=== PATIENT | female | born 1940 | race Caucasian/White ===

== ENCOUNTER 2018-05-15 21:09 | Inpatient (IN) ==
[2018-05-15] MEDS ORDERED: Sod Chloride 0.9% Inj 1,000 ML IV.SIG ONE (21:25)
[2018-05-15 21:51] LABS: Baso # (Auto) 0.1 th/mm3 (0.0-0.2); Eos # (Auto) 0.3 th/mm3 (0.0-0.4); Eos % (Auto) 3.5 % (0.0-4.0); Hematocrit 36.9 % (35.0-46.0); Hemoglobin 12.7 gm/dL (11.6-15.3); Lymph # (Auto) 0.9 th/mm3 (1.0-4.8); Lymph % (Auto) 10.2 % (9.0-44.0); Mean Corpuscular HGB Conc 34.4 % (32.0-36.0); Mean Platelet Volume 7.8 fL (7.0-11.0); Neut # (Auto) 6.8 th/mm3 (1.8-7.7); Neut % (Auto) 74.3 % (16.0-70.0); Platelet Count 268 th/mm3 (150-450); Red Blood Count 3.84 mil/mm3 (4.00-5.30); Red Cell Distribution Width 15.5 % (11.6-17.2); White Blood Count 9.1 th/mm3 (4.0-11.0)
[2018-05-15] MEDS ORDERED: Sod Chloride 0.9% Inj 1,000 ML IV.SIG SCH (22:00)
[2018-05-15 22:12] LABS: Anion Gap 11 meq/L (5-15); Aspartate Aminotransferase 30 U/L (15-37); Blood Urea Nitrogen 14 mg/dL (7-18); Calcium 8.5 mg/dL (8.5-10.1); Carbon Dioxide 25.8 meq/L (21.0-32.0); Chloride 103 meq/L (98-107); Glomerular Filtration Rate 30 mL/min (>89); Glucose,Random 145 mg/dL (74-106); Lipase 163 U/L (73-393); Magnesium 1.5 mg/dL (1.5-2.5); Potassium 3.4 meq/L (3.5-5.1); Sodium 140 meq/L (136-145)
[2018-05-15 22:16] LABS: Alanine Aminotransferase 33 U/L (10-53); Alkaline Phosphatase 76 U/L (45-117); Total Protein 7.1 g/dL (6.4-8.2)
[2018-05-15] MEDS: Morphine Inj 4 MG/ML Vial IV.PUSH ONE ×2 (22:32→23:00)
--- NOTE | 2018-05-15 22:47 | XR ---
EXAM DATE: 05/15/2018 10:40 PM EST AGE/SEX: 77 years / Female INDICATIONS: Short of breath. CLINICAL DATA: This is the patient's initial encounter. Patient reports that signs and symptoms have been present for 1 day and indicates a pain score of 0/10. MEDICAL/SURGICAL HISTORY: Hypertension. Chronic obstructive pulmonary disease. Diabetes. . Cho lecystectomy. Coronary artery stent. Tonsillectomy. Hernia repair. COMPARISON: [facility] – [place], [place]ST 1V SINGLE AP, 05/10/2018. . FINDINGS: A single AP view of the chest demonstrates small bilateral pleural effusions and bibasilar consolidat ions. These are new from the prior exam. Heart is mildly enlarged. Interstitial prominence noted thro ughout the lungs. A degenerative spine. CONCLUSION: Radiographic pattern consistent with pulmonary edema. Electronically signed by: Abimael Diallo MD Board Certified Radiologist 05/15/2018 10:46 PM EST
--- NOTE | 2018-05-15 22:59 | CT ---
EXAM DATE: 05/15/2018 10:51 PM EST AGE/SEX: 77 years / Female INDICATIONS: Left upper quadrant pain. CLINICAL DATA: This is the patient's initial encounter. Patient reports that signs and symptoms have been present for 1 day and indicates a pain score of 5/10. MEDICAL/SURGICAL HISTORY: Hiatal hernia. Diabetes. Chronic obstructive pulmonary disease. Hy pertension. Umbilical hernia. Cholecystectomy. RADIATION DOSE: 12.16 CTDI (mGy) COMPARISON: [facility] – [place], CT ABDOMEN & PELVIS W/O CONTRAST, 09/28/2015. . TECHNIQUE: Multiple contiguous axial images were obtained through the abdomen. Images were obtained using multiple row detector helical technique. Using automated exposure control and adjustment of the mA and/or kV according to patient size, radiation dose was kept as low as reasonably achievable to o btain optimal diagnostic quality images. DICOM format image data is available electronically for rev iew and comparison. FINDINGS: Lower Lungs: Small bilateral pleural effusions with passive atelectasis. Significant mitral valve jen cifications.. Liver: The liver has a homogeneous density without space-occupying lesion. There is no dilation of th e biliary tree. Gallbladder is surgically absent. Spleen: Homogeneous density without enlargement. Pancreas: Unremarkable without mass or calcification. Kidneys: Normal in size and shape. No evidence of mass or hydronephrosis. Adrenal Glands: Unremarkable. Aorta: Calcified plaque without aneurysmal dilation. Bowel/Mesentery: The bowel loops are grossly unremarkable. The cecum and sigmoid colon have a normal configuration. Abdominal Wall: Subcutaneous air is seen involving the anterior abdominal wall above the level of th e umbilicus. Small volume subcutaneous air is also seen within the left lower quadrant anterior abdom inal wall. Prior ventral hernia repair utilizing mesh. No recurrent hernia. No fluid collection.. Retroperitoneum: No evidence of adenopathy in the retrocrural, para-aortic, or deep pelvic regions. Bladder: Contours are smooth. Reproductive Organs: No abnormal masses or calcifications seen. Inguinal: The inguinal region is unremarkable without evidence of adenopathy. Bony Structures: A degenerative lumbar spine.. CONCLUSION: 1. No acute abnormality to explain the patient's left upper quadrant pain. 2. Subcutaneous air involving the anterior abdominal wall without inflammation or fluid collection. This may relate to subcutaneous medication administration. 3. Prior cholecystectomy. 4. Small bilateral pleural effusions with passive atelectasis. Electronically signed by: Abimael Diallo MD Board Certified Radiologist 05/15/2018 10:58 PM EST
--- NOTE | 2018-05-15 22:59 | ED ---
HPI General Chief complaint: Abdominal Pain Stated complaint: wound recheck Time Seen by Provider: 05/15/18 21:16 Source: patient and family Limitations: no limitations History of Present Illness HPI narrative: Patient is a 77-year-old female with history of COPD but not on oxygen in addition to CKD who presents with complaint of upper left-sided abdominal/lower left chest pain and dyspnea that began today. She has taken a tramadol and a muscle relaxer without any relief. She had a hiatal hernia surgery last week with a diaphragmatic repair. She has not had any fevers nor chills. She has had some diarrhea. No cough nor congestion. No leg swelling but she did have the surgery last week and has been relatively immobile. Onset (ago): hour(s) Severity: moderate Quality: aching Pain Consistency: constant Relieving factors: none Exacerbating factors: none Associated symptoms: Reports chest pain and shortness of breath Treatments prior to arrival: Reports other Related Data Home Medications Medication Instructions Recorded Confirmed Lacto.acidophilus-Bif.animalis 2 tab DAILY 05/10/18 05/15/18 [Daily Probiotic] alpha lipoic acid 600 mg PO DAILY 05/10/18 05/15/18 atorvastatin 10 mg PO DAILY 05/10/18 05/15/18 chromium aa msb-nvcxolmma-rozn 200 mg PO DAILY 05/10/18 05/15/18 cyanocobalamin (vitamin B-12) 1,000 mcg PO DAILY 05/10/18 05/15/18 [Vitamin B-12] ferrous sulfate 325 mg PO DAILY 05/10/18 05/15/18 gabapentin 300 mg PO TID 05/10/18 05/15/18 glipizide 5 mg PO DAILY 05/10/18 05/15/18 melatonin 3 mg PO HS PRN 05/10/18 05/15/18 metformin 500 mg PO BID 05/10/18 05/15/18 pantoprazole 40 mg PO DAILY 05/10/18 05/15/18 paroxetine HCl 30 mg PO DAILY 05/10/18 05/15/18 cyclobenzaprine 10 mg PO TID PRN 05/15/18 05/15/18 tramadol 50 mg PO Q6H PRN 05/15/18 05/15/18 Allergies Allergy/AdvReac Type Severity Reaction Status Date / Time adenosine Allergy Severe Tachycardia Verified 05/15/18 21:15 amoxicillin Allergy Severe Itching Verified 05/15/18 21:15 cephalexin Allergy Severe Swelling Verified 05/15/18 21:15 latex Allergy Severe Rash Verified 05/15/18 21:15 oxycodone Allergy Severe Hallucinati Verified 05/15/18 21:15 ons procaine Allergy Severe Shakiness Verified 05/15/18 21:15 prednisone Allergy Hallucinati Verified 05/15/18 21:15 ons CUREL BANDAIDS Allergy Unknown Hives Uncoded 05/15/18 21:15 Review of Systems ROS: all other systems reviewed are negative [facility] Medical History Medical History COPD (chronic obstructive pulmonary disease) (Acute) Chronic GERD (Acute) Diabetes (Acute) Hiatal hernia (Acute) Hypertension (Acute) Peptic ulcer (Acute) Surgical History Surgical History History of repair of hiatal hernia (Acute) H/O angioplasty (Acute) H/O umbilical hernia repair (Acute) History of tonsillectomy (Acute) Hx of cholecystectomy (Acute) Social History Social History Substance History: No History of Abuse Second Hand Smoke Exposure: No Smoking Status: Former smoker Tobacco Type: Cigarettes How Often Do You Have a Drink Containing Alcohol: Never Recent Travel in [facility] within the Last 8 Weeks: No Recent Out of Country Travel within the Last 8 Weeks: No Immunization History Tetanus Immunization: Unsure Exam Narrative Exam Narrative: GENERAL: Well-appearing, elderly female SKIN: Focused skin assessment warm/dry. HEAD: Atraumatic. Normocephalic. EYES: Pupils equal and round. No scleral icterus. No injection or drainage. ENT: No nasal bleeding or discharge. Mucous membranes pink and moist. NECK: Trachea midline. No JVD. CARDIOVASCULAR: Regular rate and rhythm. No murmur appreciated. Intact and equal peripheral pulses. RESPIRATORY: No accessory muscle use. Clear to auscultation. Breath sounds equal bilaterally. GASTROINTESTINAL: Abdomen soft, some tenderness in the left upper quadrant, nondistended. Hepatic and splenic margins not palpable. MUSCULOSKELETAL: No obvious deformities. No clubbing. No cyanosis. No edema. NEUROLOGICAL: Awake and alert. No obvious cranial nerve deficits. Motor grossly within normal limits. Normal speech. PSYCHIATRIC: Appropriate mood and affect; insight and judgment normal. Course Initial Documented Vital Signs Temperature 97.5 F L 05/15/18 21:14 Pulse Rate 102 H 05/15/18 21:14 Respiratory Rate 24 05/15/18 21:14 Blood Pressure 82/48 L 05/15/18 21:14 Pulse Oximetry 94 L 05/15/18 21:14 Last Documented Vital Signs Temperature 98.6 F 05/17/18 16:16 Pulse Rate 86 05/17/18 18:22 Respiratory Rate 18 05/17/18 11:51 Blood Pressure 152/83 H 05/17/18 18:22 Pulse Oximetry 96 05/17/18 18:22 Critical Care Time Critical Care Time: Yes Total Critical Care Time: 35 Attestation: Aggregate critical care time was 35 minutes. Time to perform other separately billable procedures was not included in the critical care time. My time did not include minutes spent treating any other patients simultaneously or on activities that did not directly contribute to the patient's treatment. The services I provided to this patient were to treat and/or prevent clinically significant deterioration that could result in: NSTEMI, disability I provided critical care services requiring my management, as noted below: Chart data review, documentation time, medication orders and management, vital sign assessments/reviewing monitor data, ordering and reviewing lab tests, ordering and interpreting/reviewing x-rays and diagnostic studies, care of the patient and discussion of the patient with the admitting physicians. Sign Out Sign Out Data: Patient Sign Out occurred on 05/15/18 at 23:18. Patient's care was discussed, and care was transferred from Keyana Rincon MD to Brant Mejia MD. Sign Out Comment: Low chest/upper abd pain. New O2 requirement. CT abd/pelvis and VQ scan pending. Last updated by Keyana Rincon MD at 05/15/18 23:13 Medical Decision Making MDM Narrative Medical decision making narrative: Patient is a 77-year-old female who presents with lower left chest/upper abdominal pain that began today. She did have a hiatal hernia surgery last week. On arrival her blood pressure was in the 80s and she responded to fluid bolus. She does also have a new oxygen requirement which responded well to 2 L nasal cannula. Labs are relatively unremarkable and show CKD. Given her creatinine she cannot have contrasted CTs and thus a VQ scan and a CT of the abdomen pelvis have been ordered. I did discuss this with her surgeon, Dr. Alves who agreed to see the patient tomorrow. Please refer to Dr Rincon's note. WBC 9,100 Hb 12.7 Plt 268 Cr 1.65 Tn 0.03 Lipase 163 EKG TWI in V2-V5 appear new compared to [address] abd/pelvis: Small bilateral pleural effusions; post-operative changes; atelectasis Pt ambulated in pod. Upon return to room RR 30BPM. O2 sat approx 95% on RA upon return. HR 70s. Pt reports severe pain in LUQ quadrant upon return to bed. Dilaudid ordered, 1mg IV, along with Zofran. BP 100/51 at 123AM. There is concern for CAD in setting of EKG change with left sided chest pain worse with exertion in post-operative setting with bilateral pleural effusions, atelectasis and dyspnea at rest requiring O2 for sustained O2 sat in the 90s coupled with relative hypotension 90s/50s after 1L NS. 500cc NS bolus ordered as of 126AM. Call to [facility] at 120AM. d/w Dr rGace at approx 130AM. Medical Screen Exam Complete: Yes Emergency Medical Condition: Yes Differential Diagnosis Differential Diagnosis: Differential diagnosis includes but is not limited to acute coronary syndrome, pulmonary embolism, intra-abdominal infection. Medical Records Medical records reviewed: Yes I reviewed the patient's medical records. Lab Data Result diagrams: 05/17/18 08:39 05/17/18 08:39 Lab Results 05/15/18 05/15/18 05/15/18 Range/Units 21:40 21:40 21:40 WBC 9.1 (4.0-11.0) th/mm3 RBC 3.84 L (4.00-5.30) mil/mm3 Hgb 12.7 (11.6-15.3) gm/dL Hct 36.9 (35.0-46.0) % MCV 96.0 (80.0-100.0) fL MCH 33.0 (27.0-34.0) pg MCHC 34.4 (32.0-36.0) % RDW 15.5 (11.6-17.2) % Plt Count 268 (150-450) th/mm3 MPV 7.8 (7.0-11.0) fL Neut % (Auto) 74.3 H (16.0-70.0) % Lymph % (Auto) 10.2 (9.0-44.0) % [place] % (Auto) 11.0 H (0.0-8.0) % Eos % (Auto) 3.5 (0.0-4.0) % Baso % (Auto) 1.0 (0.0-2.0) % Neut # (Auto) 6.8 (1.8-7.7) th/mm3 Lymph # (Auto) 0.9 L (1.0-4.8) th/mm3 [place] # (Auto) 1.0 H (0.0-0.9) th/mm3 Eos # (Auto) 0.3 (0.0-0.4) th/mm3 Baso # (Auto) 0.1 (0.0-0.2) th/mm3 WBC Differential . Differential Comment Auto diff final D-Dimer Quant (PE/DVT) (0.00-0.50) mg/L FEU Sodium 140 (136-145) meq/L Potassium 3.4 L (3.5-5.1) meq/L Chloride 103 (98-107) meq/L Carbon Dioxide 25.8 (21.0-32.0) meq/L Anion Gap 11 (5-15) meq/L BUN 14 (7-18) mg/dL Creatinine 1.65 H (0.50-1.00) mg/dL Estimated GFR 30 L (>89) mL/min POC Glucose (68-110) mg/dl Random Glucose 145 H (74-106) mg/dL Calcium 8.5 (8.5-10.1) mg/dL Magnesium 1.5 (1.5-2.5) mg/dL Total Bilirubin 0.6 (0.2-1.0) mg/dL AST 30 (15-37) U/L ALT 33 (10-53) U/L Alkaline Phosphatase 76 (45-117) U/L Total Creatine Kinase (26-192) U/L CK-MB (CK-2) (0.5-3.6) ng/mL CK-MB (CK-2) % (0.0-4.0) % Troponin I 0.03 (0.02-0.05) ng/mL B-Natriuretic Peptide (0-100) pg/mL Total Protein 7.1 (6.4-8.2) g/dL Albumin 3.0 L (3.4-5.0) g/dL Triglycerides (42-150) mg/dL Cholesterol (120-200) mg/dL LDL Cholesterol, Calc (0-99) mg/dL HDL Cholesterol (40.0-60.0) mg/dL Cholesterol/HDL Ratio Ratio Lipase 163 (73-393) U/L Urine Color (Yellw/Straw) Urine Clarity (Clear) Urine pH (5.0-8.5) Ur Specific [place] (1.002-1.035) Urine Protein (Neg-Trace) mg/dL Urine Glucose (UA) (Negative) mg/dL Urine Ketones (Negative) mg/dL Urine Occult Blood (Negative) Urine Nitrate (Negative) Urine Bilirubin (Negative) Urine Urobilinogen (Less than 2) mg/dL Ur Leukocyte Esterase (Negative) Urine RBC (0-3) /hpf Urine WBC (0-5) /hpf Ur Squamous Epith Cells (0-5) /hpf Urine Bacteria (None) /hpf Micro UA Comment Ur Microscopic Review Urine Culture Comments 05/15/18 05/15/18 05/16/18 Range/Units 21:40 23:30 05:30 WBC (4.0-11.0) th/mm3 RBC (4.00-5.30) mil/mm3 Hgb (11.6-15.3) gm/dL Hct (35.0-46.0) % MCV (80.0-100.0) fL MCH (27.0-34.0) pg MCHC (32.0-36.0) % RDW (11.6-17.2) % Plt Count (150-450) th/mm3 MPV (7.0-11.0) fL Neut % (Auto) (16.0-70.0) % Lymph % (Auto) (9.0-44.0) % [place] % (Auto) (0.0-8.0) % Eos % (Auto) (0.0-4.0) % Baso % (Auto) (0.0-2.0) % Neut # (Auto) (1.8-7.7) th/mm3 Lymph # (Auto) (1.0-4.8) th/mm3 [place] # (Auto) (0.0-0.9) th/mm3 Eos # (Auto) (0.0-0.4) th/mm3 Baso # (Auto) (0.0-0.2) th/mm3 WBC Differential Differential Comment D-Dimer Quant (PE/DVT) (0.00-0.50) mg/L FEU Sodium (136-145) meq/L Potassium (3.5-5.1) meq/L Chloride (98-107) meq/L Carbon Dioxide (21.0-32.0) meq/L Anion Gap (5-15) meq/L BUN (7-18) mg/dL Creatinine (0.50-1.00) mg/dL Estimated GFR (>89) mL/min POC Glucose (68-110) mg/dl Random Glucose (74-106) mg/dL Calcium (8.5-10.1) mg/dL Magnesium (1.5-2.5) mg/dL Total Bilirubin (0.2-1.0) mg/dL AST (15-37) U/L ALT (10-53) U/L Alkaline Phosphatase (45-117) U/L Total Creatine Kinase 478 H (26-192) U/L CK-MB (CK-2) 7.4 H (0.5-3.6) ng/mL CK-MB (CK-2) % 1.5 (0.0-4.0) % Troponin I 0.04 (0.02-0.05) ng/mL B-Natriuretic Peptide 85 (0-100) pg/mL Total Protein (6.4-8.2) g/dL Albumin (3.4-5.0) g/dL Triglycerides (42-150) mg/dL Cholesterol (120-200) mg/dL LDL Cholesterol, Calc (0-99) mg/dL HDL Cholesterol (40.0-60.0) mg/dL Cholesterol/HDL Ratio Ratio Lipase (73-393) U/L Urine Color Yellow (Yellw/Straw) Urine Clarity Hazy H (Clear) Urine pH 6.0 (5.0-8.5) Ur Specific [place] 1.006 (1.002-1.035) Urine Protein Negative (Neg-Trace) mg/dL Urine Glucose (UA) Negative (Negative) mg/dL Urine Ketones Trace H (Negative) mg/dL Urine Occult Blood Small H (Negative) Urine Nitrate Negative (Negative) Urine Bilirubin Negative (Negative) Urine Urobilinogen Less than 2 (Less than 2) mg/dL Ur Leukocyte Esterase Small H (Negative) Urine RBC 2 (0-3) /hpf Urine WBC 14 H (0-5) /hpf Ur Squamous Epith Cells 1 (0-5) /hpf Urine Bacteria Rare H (None) /hpf Micro UA Comment Culture indicated Ur Microscopic Review Not Reportable Urine Culture Comments Culture indicated 05/16/18 05/16/18 05/16/18 Range/Units 05:30 05:30 08:53 WBC 6.8 (4.0-11.0) th/mm3 RBC 3.34 L (4.00-5.30) mil/mm3 Hgb 10.5 L D (11.6-15.3) gm/dL Hct 31.6 L (35.0-46.0) % MCV 94.5 (80.0-100.0) fL MCH 31.4 (27.0-34.0) pg MCHC 33.2 (32.0-36.0) % RDW 15.6 (11.6-17.2) % Plt Count 208 (150-450) th/mm3 MPV 7.6 (7.0-11.0) fL Neut % (Auto) 63.8 (16.0-70.0) % Lymph % (Auto) 17.3 (9.0-44.0) % [place] % (Auto) 13.7 H (0.0-8.0) % Eos % (Auto) 4.5 H (0.0-4.0) % Baso % (Auto) 0.7 (0.0-2.0) % Neut # (Auto) 4.3 (1.8-7.7) th/mm3 Lymph # (Auto) 1.2 (1.0-4.8) th/mm3 [place] # (Auto) 0.9 (0.0-0.9) th/mm3 Eos # (Auto) 0.3 (0.0-0.4) th/mm3 Baso # (Auto) 0.0 (0.0-0.2) th/mm3 WBC Differential . Differential Comment Auto diff final D-Dimer Quant (PE/DVT) (0.00-0.50) mg/L FEU Sodium 144 (136-145) meq/L Potassium 3.6 (3.5-5.1) meq/L Chloride 111 H D (98-107) meq/L Carbon Dioxide 25.5 (21.0-32.0) meq/L Anion Gap 8 (5-15) meq/L BUN 12 (7-18) mg/dL Creatinine 1.20 H (0.50-1.00) mg/dL Estimated GFR 44 L (>89) mL/min POC Glucose 80 (68-110) mg/dl Random Glucose 101 (74-106) mg/dL Calcium 7.9 L (8.5-10.1) mg/dL Magnesium (1.5-2.5) mg/dL Total Bilirubin (0.2-1.0) mg/dL AST (15-37) U/L ALT (10-53) U/L Alkaline Phosphatase (45-117) U/L Total Creatine Kinase (26-192) U/L CK-MB (CK-2) (0.5-3.6) ng/mL CK-MB (CK-2) % (0.0-4.0) % Troponin I (0.02-0.05) ng/mL B-Natriuretic Peptide (0-100) pg/mL Total Protein (6.4-8.2) g/dL Albumin (3.4-5.0) g/dL Triglycerides (42-150) mg/dL Cholesterol (120-200) mg/dL LDL Cholesterol, Calc (0-99) mg/dL HDL Cholesterol (40.0-60.0) mg/dL Cholesterol/HDL Ratio Ratio Lipase (73-393) U/L Urine Color (Yellw/Straw) Urine Clarity (Clear) Urine pH (5.0-8.5) Ur Specific [place] (1.002-1.035) Urine Protein (Neg-Trace) mg/dL Urine Glucose (UA) (Negative) mg/dL Urine Ketones (Negative) mg/dL Urine Occult Blood (Negative) Urine Nitrate (Negative) Urine Bilirubin (Negative) Urine Urobilinogen (Less than 2) mg/dL Ur Leukocyte Esterase (Negative) Urine RBC (0-3) /hpf Urine WBC (0-5) /hpf Ur Squamous Epith Cells (0-5) /hpf Urine Bacteria (None) /hpf Micro UA Comment Ur Microscopic Review Urine Culture Comments 05/16/18 05/16/18 05/16/18 Range/Units 10:45 12:18 17:54 WBC (4.0-11.0) th/mm3 RBC (4.00-5.30) mil/mm3 Hgb (11.6-15.3) gm/dL Hct (35.0-46.0) % MCV (80.0-100.0) fL MCH (27.0-34.0) pg MCHC (32.0-36.0) % RDW (11.6-17.2) % Plt Count (150-450) th/mm3 MPV (7.0-11.0) fL Neut % (Auto) (16.0-70.0) % Lymph % (Auto) (9.0-44.0) % [place] % (Auto) (0.0-8.0) % Eos % (Auto) (0.0-4.0) % Baso % (Auto) (0.0-2.0) % Neut # (Auto) (1.8-7.7) th/mm3 Lymph # (Auto) (1.0-4.8) th/mm3 [place] # (Auto) (0.0-0.9) th/mm3 Eos # (Auto) (0.0-0.4) th/mm3 Baso # (Auto) (0.0-0.2) th/mm3 WBC Differential Differential Comment D-Dimer Quant (PE/DVT) (0.00-0.50) mg/L FEU Sodium (136-145) meq/L Potassium (3.5-5.1) meq/L Chloride (98-107) meq/L Carbon Dioxide (21.0-32.0) meq/L Anion Gap (5-15) meq/L BUN (7-18) mg/dL Creatinine (0.50-1.00) mg/dL Estimated GFR (>89) mL/min POC Glucose 93 101 (68-110) mg/dl Random Glucose (74-106) mg/dL Calcium (8.5-10.1) mg/dL Magnesium (1.5-2.5) mg/dL Total Bilirubin (0.2-1.0) mg/dL AST (15-37) U/L ALT (10-53) U/L Alkaline Phosphatase (45-117) U/L Total Creatine Kinase 464 H (26-192) U/L CK-MB (CK-2) 6.9 H (0.5-3.6) ng/mL CK-MB (CK-2) % 1.5 (0.0-4.0) % Troponin I 0.04 (0.02-0.05) ng/mL B-Natriuretic Peptide (0-100) pg/mL Total Protein (6.4-8.2) g/dL Albumin (3.4-5.0) g/dL Triglycerides (42-150) mg/dL Cholesterol (120-200) mg/dL LDL Cholesterol, Calc (0-99) mg/dL HDL Cholesterol (40.0-60.0) mg/dL Cholesterol/HDL Ratio Ratio Lipase (73-393) U/L Urine Color (Yellw/Straw) Urine Clarity (Clear) Urine pH (5.0-8.5) Ur Specific [place] (1.002-1.035) Urine Protein (Neg-Trace) mg/dL Urine Glucose (UA) (Negative) mg/dL Urine Ketones (Negative) mg/dL Urine Occult Blood (Negative) Urine Nitrate (Negative) Urine Bilirubin (Negative) Urine Urobilinogen (Less than 2) mg/dL Ur Leukocyte Esterase (Negative) Urine RBC (0-3) /hpf Urine WBC (0-5) /hpf Ur Squamous Epith Cells (0-5) /hpf Urine Bacteria (None) /hpf Micro UA Comment Ur Microscopic Review Urine Culture Comments 05/16/18 05/16/18 05/17/18 Range/Units 21:40 23:48 04:59 WBC (4.0-11.0) th/mm3 RBC (4.00-5.30) mil/mm3 Hgb (11.6-15.3) gm/dL Hct (35.0-46.0) % MCV (80.0-100.0) fL MCH (27.0-34.0) pg MCHC (32.0-36.0) % RDW (11.6-17.2) % Plt Count (150-450) th/mm3 MPV (7.0-11.0) fL Neut % (Auto) (16.0-70.0) % Lymph % (Auto) (9.0-44.0) % [place] % (Auto) (0.0-8.0) % Eos % (Auto) (0.0-4.0) % Baso % (Auto) (0.0-2.0) % Neut # (Auto) (1.8-7.7) th/mm3 Lymph # (Auto) (1.0-4.8) th/mm3 [place] # (Auto) (0.0-0.9) th/mm3 Eos # (Auto) (0.0-0.4) th/mm3 Baso # (Auto) (0.0-0.2) th/mm3 WBC Differential Differential Comment D-Dimer Quant (PE/DVT) 9.01 H (0.00-0.50) mg/L FEU Sodium (136-145) meq/L Potassium (3.5-5.1) meq/L Chloride (98-107) meq/L Carbon Dioxide (21.0-32.0) meq/L Anion Gap (5-15) meq/L BUN (7-18) mg/dL Creatinine (0.50-1.00) mg/dL Estimated GFR (>89) mL/min POC Glucose 108 116 H (68-110) mg/dl Random Glucose (74-106) mg/dL Calcium (8.5-10.1) mg/dL Magnesium (1.5-2.5) mg/dL Total Bilirubin (0.2-1.0) mg/dL AST (15-37) U/L ALT (10-53) U/L Alkaline Phosphatase (45-117) U/L Total Creatine Kinase (26-192) U/L CK-MB (CK-2) (0.5-3.6) ng/mL CK-MB (CK-2) % (0.0-4.0) % Troponin I (0.02-0.05) ng/mL B-Natriuretic Peptide (0-100) pg/mL Total Protein (6.4-8.2) g/dL Albumin (3.4-5.0) g/dL Triglycerides (42-150) mg/dL Cholesterol (120-200) mg/dL LDL Cholesterol, Calc (0-99) mg/dL HDL Cholesterol (40.0-60.0) mg/dL Cholesterol/HDL Ratio Ratio Lipase (73-393) U/L Urine Color (Yellw/Straw) Urine Clarity (Clear) Urine pH (5.0-8.5) Ur Specific [place] (1.002-1.035) Urine Protein (Neg-Trace) mg/dL Urine Glucose (UA) (Negative) mg/dL Urine Ketones (Negative) mg/dL Urine Occult Blood (Negative) Urine Nitrate (Negative) Urine Bilirubin (Negative) Urine Urobilinogen (Less than 2) mg/dL Ur Leukocyte Esterase (Negative) Urine RBC (0-3) /hpf Urine WBC (0-5) /hpf Ur Squamous Epith Cells (0-5) /hpf Urine Bacteria (None) /hpf Micro UA Comment Ur Microscopic Review Urine Culture Comments 05/17/18 05/17/18 05/17/18 Range/Units 08:39 08:39 09:02 WBC 7.5 (4.0-11.0) th/mm3 RBC 3.19 L (4.00-5.30) mil/mm3 Hgb 10.3 L (11.6-15.3) gm/dL Hct 31.0 L (35.0-46.0) % MCV 97.1 (80.0-100.0) fL MCH 32.4 (27.0-34.0) pg MCHC 33.4 (32.0-36.0) % RDW 14.9 (11.6-17.2) % Plt Count 201 (150-450) th/mm3 MPV 7.6 (7.0-11.0) fL Neut % (Auto) 70.0 (16.0-70.0) % Lymph % (Auto) 13.2 (9.0-44.0) % [place] % (Auto) 12.6 H (0.0-8.0) % Eos % (Auto) 3.8 (0.0-4.0) % Baso % (Auto) 0.4 (0.0-2.0) % Neut # (Auto) 5.3 (1.8-7.7) th/mm3 Lymph # (Auto) 1.0 (1.0-4.8) th/mm3 [place] # (Auto) 1.0 H (0.0-0.9) th/mm3 Eos # (Auto) 0.3 (0.0-0.4) th/mm3 Baso # (Auto) 0.0 (0.0-0.2) th/mm3 WBC Differential . Differential Comment Auto diff final D-Dimer Quant (PE/DVT) (0.00-0.50) mg/L FEU Sodium 140 (136-145) meq/L Potassium 4.1 (3.5-5.1) meq/L Chloride 106 (98-107) meq/L Carbon Dioxide 22.9 (21.0-32.0) meq/L Anion Gap 11 (5-15) meq/L BUN 17 (7-18) mg/dL Creatinine 1.23 H (0.50-1.00) mg/dL Estimated GFR 43 L (>89) mL/min POC Glucose 99 (68-110) mg/dl Random Glucose 87 (74-106) mg/dL Calcium 8.3 L (8.5-10.1) mg/dL Magnesium (1.5-2.5) mg/dL Total Bilirubin (0.2-1.0) mg/dL AST (15-37) U/L ALT (10-53) U/L Alkaline Phosphatase (45-117) U/L Total Creatine Kinase (26-192) U/L CK-MB (CK-2) (0.5-3.6) ng/mL CK-MB (CK-2) % (0.0-4.0) % Troponin I (0.02-0.05) ng/mL B-Natriuretic Peptide (0-100) pg/mL Total Protein (6.4-8.2) g/dL Albumin (3.4-5.0) g/dL Triglycerides 109 (42-150) mg/dL Cholesterol 133 (120-200) mg/dL LDL Cholesterol, Calc 72 (0-99) mg/dL HDL Cholesterol 39.2 L (40.0-60.0) mg/dL Cholesterol/HDL Ratio 3.39 Ratio Lipase (73-393) U/L Urine Color (Yellw/Straw) Urine Clarity (Clear) Urine pH (5.0-8.5) Ur Specific [place] (1.002-1.035) Urine Protein (Neg-Trace) mg/dL Urine Glucose (UA) (Negative) mg/dL Urine Ketones (Negative) mg/dL Urine Occult Blood (Negative) Urine Nitrate (Negative) Urine Bilirubin (Negative) Urine Urobilinogen (Less than 2) mg/dL Ur Leukocyte Esterase (Negative) Urine RBC (0-3) /hpf Urine WBC (0-5) /hpf Ur Squamous Epith Cells (0-5) /hpf Urine Bacteria (None) /hpf Micro UA Comment Ur Microscopic Review Urine Culture Comments 05/17/18 05/17/18 Range/Units 14:33 18:03 WBC (4.0-11.0) th/mm3 RBC (4.00-5.30) mil/mm3 Hgb (11.6-15.3) gm/dL Hct (35.0-46.0) % MCV (80.0-100.0) fL MCH (27.0-34.0) pg MCHC (32.0-36.0) % RDW (11.6-17.2) % Plt Count (150-450) th/mm3 MPV (7.0-11.0) fL Neut % (Auto) (16.0-70.0) % Lymph % (Auto) (9.0-44.0) % [place] % (Auto) (0.0-8.0) % Eos % (Auto) (0.0-4.0) % Baso % (Auto) (0.0-2.0) % Neut # (Auto) (1.8-7.7) th/mm3 Lymph # (Auto) (1.0-4.8) th/mm3 [place] # (Auto) (0.0-0.9) th/mm3 Eos # (Auto) (0.0-0.4) th/mm3 Baso # (Auto) (0.0-0.2) th/mm3 WBC Differential Differential Comment D-Dimer Quant (PE/DVT) (0.00-0.50) mg/L FEU Sodium (136-145) meq/L Potassium (3.5-5.1) meq/L Chloride (98-107) meq/L Carbon Dioxide (21.0-32.0) meq/L Anion Gap (5-15) meq/L BUN (7-18) mg/dL Creatinine (0.50-1.00) mg/dL Estimated GFR (>89) mL/min POC Glucose 148 H 85 (68-110) mg/dl Random Glucose (74-106) mg/dL Calcium (8.5-10.1) mg/dL Magnesium (1.5-2.5) mg/dL Total Bilirubin (0.2-1.0) mg/dL AST (15-37) U/L ALT (10-53) U/L Alkaline Phosphatase (45-117) U/L Total Creatine Kinase (26-192) U/L CK-MB (CK-2) (0.5-3.6) ng/mL CK-MB (CK-2) % (0.0-4.0) % Troponin I (0.02-0.05) ng/mL B-Natriuretic Peptide (0-100) pg/mL Total Protein (6.4-8.2) g/dL Albumin (3.4-5.0) g/dL Triglycerides (42-150) mg/dL Cholesterol (120-200) mg/dL LDL Cholesterol, Calc (0-99) mg/dL HDL Cholesterol (40.0-60.0) mg/dL Cholesterol/HDL Ratio Ratio Lipase (73-393) U/L Urine Color (Yellw/Straw) Urine Clarity (Clear) Urine pH (5.0-8.5) Ur Specific [place] (1.002-1.035) Urine Protein (Neg-Trace) mg/dL Urine Glucose (UA) (Negative) mg/dL Urine Ketones (Negative) mg/dL Urine Occult Blood (Negative) Urine Nitrate (Negative) Urine Bilirubin (Negative) Urine Urobilinogen (Less than 2) mg/dL Ur Leukocyte Esterase (Negative) Urine RBC (0-3) /hpf Urine WBC (0-5) /hpf Ur Squamous Epith Cells (0-5) /hpf Urine Bacteria (None) /hpf Micro UA Comment Ur Microscopic Review Urine Culture Comments Imaging Data Radiologist's impression: Chest X-Ray 05/15/18 22:09 CONCLUSION: Radiographic pattern consistent with pulmonary edema. Abdomen/Pelvis CT 05/15/18 22:14 CONCLUSION: 1. No acute abnormality to explain the patient's left upper quadrant pain. 2. Subcutaneous air involving the anterior abdominal wall without inflammation or fluid collection. This may relate to subcutaneous medication administration. 3. Prior cholecystectomy. 4. Small bilateral pleural effusions with passive atelectasis. Pulmonary Perfusion Imaging 05/15/18 22:14 CONCLUSION: No significant ventilation/perfusion mismatch is identified. Examination is low probability for PE. Chest X-Ray 05/16/18 10:08 CONCLUSION: Worsening CHF Chest CTA 05/17/18 00:00 CONCLUSION: 1. No CT evidence for pulmonary artery embolism as questioned. 2. Redemonstration of small bilateral pleural effusions with airspace consolidation at the lung bases. 3. Coronary artery calcifications. ECG Data EKG Prior to Arrival: No Attestation: I personally reviewed and interpreted this ECG as follows: (Sinus rhythm at a rate of 72 bpm. There is a right bundle branch block. There are T wave inversions in most of the leads. No ST changes.) Discharge Plan Discharge Disposition Patient Disposition: ED Admit(ED Internal Use Only) Discharge Condition Condition: Stable Discharge Order Discharge Orders: ED Use Only Admit Order (Routine); Ordered 05/16/18 Ordered By: Brant Mejia Physicians Team ED Provider: Brant Mejia Primary Care Provider: UNKNOWN, Attending Provider: Luis Yeung Other Providers: Eric Alves ; Eric Enrique Status ED Status: Left Department Discharge Information Discharge Date/Time: 05/16/18 03:29
--- NOTE | 2018-05-15 23:22 | NM ---
EXAM DATE: 05/15/2018 11:17 PM EST AGE/SEX: 77 years / Female INDICATIONS: Shortness of breath for one day. CLINICAL DATA: This is the patient's initial encounter. Patient reports that signs and symptoms have been present for 1 day and indicates a pain score of 0/10. MEDICAL/SURGICAL HISTORY: Gastroesophageal reflux disease. Chronic obstructive pulmonary disea se. Tonsillectomy. Cholecystectomy. Umbilical hernia repair. COMPAR[place]: [facility] [place]EL[place]/O CONTRAST, 05/15/2018. [facility] [place]ST 1V SINGLE AP, 05/15/2018. . No external comparison. DOSE: 0.87 mCi Tc99m DTPA aerosol 8.7 mCi Tc99m MAA IV TECHNIQUE: Following five minutes of tidal breathing of DTPA aerosol, planar images of the lungs wer e performed in eight projections. The patient was then injected with MAA, and eight-view perfusion s can was performed. FINDINGS: There is relatively homogeneous aerosol delivery to the periphery of both lungs with some clumping of activity in the central airways. No focal ventilatory defects are seen. The perfusion lung scan demonstrates a homogenous pattern of uptake in both lungs. No segmental or s ubsegmental defects are seen. CONCLUSION: No significant ventilation/perfusion mismatch is identified. Examination is low probability for PE. Electronically signed by: Leonel Ojeda MD Board Certified Radiologist 05/15/2018 11:21 PM EST
[2018-05-16 00:05] LABS: Bacteria,Urine Rare /hpf; Bilirubin,Urine Negative (Negative); Clarity,Urine Hazy (Clear); Color,Urine Yellow (Yellw/Straw); Glucose,Urine (UA) Negative (Negative); Leukocyte Esterase,Urine Small (Negative); Nitrite,Urine Negative (Negative); Specific Gravity,Urine 1.006 (1.002-1.035); Squamous Epithelial Cell,Urine 1 /hpf (0-5)
[2018-05-16] MEDS ORDERED: HYDROmorphone PF Inj 2 MG/ML Vial IV.PUSH ONE (01:11)
[2018-05-16] MEDS ORDERED: Ciprofloxacin 500 MG Tablet PO ONE (01:42)
[2018-05-16] MEDS ORDERED: Sodium Chlor 0.9% Inj 500 ML IV.SIG SCH (02:00)
[2018-05-16] MEDS ORDERED: Sodium Chloride 0.9% 2 ML Flush PRN IV.FLUSH (03:56)
[2018-05-16] MEDS ORDERED: Acetaminophen 500 MG Tablet PO PRN (03:59)
[2018-05-16] MEDS ORDERED: Sod Chloride 0.9% Inj 1,000 ML IV.CONT SCH (04:00)
[2018-05-16] MEDS ORDERED: Dextrose 50% in Water 50 ML Vial IV.PUSH PRN (04:09)
[2018-05-16] MEDS ORDERED: Melatonin 5 MG Tablet PO PRN (04:10)
--- NOTE | 2018-05-16 04:15 | P.HPIM ---
History of Present Illness Primary Care Physician: UNKNOWN 77-year-old female with a past medical history significant for diabetes mellitus , COPD, hyperlipidemia and GERD presents to the emergency department for the evaluation of left-sided abdominal/flank pain. The patient is status post hiatal hernia repair with Dr. Amador on Sunday. She states she awoken this morning with this left sided flank pain. She was in her usual state of health until that time. She denies any chest pain or shortness of breath. No fever/ chills. No nausea/vomiting/diarrhea. No focal neurologic deficits. Review of Systems Review of Systems: all other systems reviewed are negative [facility] Medical History Medical History COPD (chronic obstructive pulmonary disease) (Acute) Chronic GERD (Acute) Diabetes (Acute) Hiatal hernia (Acute) Hypertension (Acute) Peptic ulcer (Acute) Surgical History Surgical History History of repair of hiatal hernia (Acute) H/O angioplasty (Acute) H/O umbilical hernia repair (Acute) History of tonsillectomy (Acute) Hx of cholecystectomy (Acute) Family History Family History Other Diabetes mellitus Social History Social History Substance History: No History of Abuse Second Hand Smoke Exposure: No Smoking Status: Former smoker Tobacco Type: Cigarettes How Often Do You Have a Drink Containing Alcohol: Never Recent Travel in [facility] within the Last 8 Weeks: No Recent Out of Country Travel within the Last 8 Weeks: No Immunization History Tetanus Immunization: Unsure Medications and Allergies Allergies Allergy/AdvReac Type Severity Reaction Status Date / Time adenosine Allergy Severe Tachycardia Verified 05/15/18 21:15 amoxicillin Allergy Severe Itching Verified 05/15/18 21:15 cephalexin Allergy Severe Swelling Verified 05/15/18 21:15 latex Allergy Severe Rash Verified 05/15/18 21:15 oxycodone Allergy Severe Hallucinati Verified 05/15/18 21:15 ons procaine Allergy Severe Shakiness Verified 05/15/18 21:15 prednisone Allergy Hallucinati Verified 05/15/18 21:15 ons CUREL BANDAIDS Allergy Unknown Hives Uncoded 05/15/18 21:15 Home Medications Medication Instructions Recorded Confirmed Type Lacto.acidophilus-Bif.animalis 2 tab DAILY 05/10/18 05/15/18 History [Daily Probiotic] alpha lipoic acid 600 mg PO DAILY 05/10/18 05/15/18 History atorvastatin 10 mg PO DAILY 05/10/18 05/15/18 History chromium aa noa-[id number]-cwxx 200 mg PO DAILY 05/10/18 05/15/18 History cyanocobalamin (vitamin B-12) 1,000 mcg PO DAILY 05/10/18 05/15/18 History [Vitamin B-12] ferrous sulfate 325 mg PO DAILY 05/10/18 05/15/18 History gabapentin 300 mg PO TID 05/10/18 05/15/18 History glipizide 5 mg PO DAILY 05/10/18 05/15/18 History melatonin 3 mg PO HS PRN 05/10/18 05/15/18 History metformin 500 mg PO BID 05/10/18 05/15/18 History pantoprazole 40 mg PO DAILY 05/10/18 05/15/18 History paroxetine HCl 30 mg PO DAILY 05/10/18 05/15/18 History cyclobenzaprine 10 mg PO TID PRN 05/15/18 05/15/18 History tramadol 50 mg PO Q6H PRN 05/15/18 05/15/18 History Active Medications: Active Medications Acetaminophen (Tylenol) 500 mg PO Q4H PRN PRN Reason: HEADACHE Sodium Chloride (Ns Inj) 1,000 mls @ 100 mls/hr IV.CONT .Q10H MEREDITH Morphine Sulfate (Morphine Inj) 2 mg IV.PUSH Q3H PRN PRN Reason: PAIN SCALE 6 TO 10 Nitroglycerin (Nitrostat Sl) 0.4 mg SL Q5M PRN PRN Reason: ANGINA Sodium Chloride (Ns Flush) 2 ml IV.FLUSH BID MEREDITH Sodium Chloride (Ns Flush) 2 ml IV.FLUSH PRN PRN PRN Reason: FLUSH AFTER USING IV ACCESS Physical Exam Vital signs: Vital Signs 05/15/18 21:14 05/15/18 22:02 05/15/18 23:26 Temperature 97.5 F L Pulse Rate 102 H 71 75 Respiratory Rate 24 18 20 Blood Pressure 82/48 L 137/67 Pulse Oximetry 94 L 98 05/16/18 02:00 05/16/18 03:17 Temperature 98.3 F Pulse Rate 73 70 Respiratory Rate 16 20 Blood Pressure 109/56 L 145/67 H Pulse Oximetry 96 Intake & Output 05/15/18 05/15/18 05/16/18 06:59 18:59 06:59 Intake Total 2500 / 2500 Balance 2500 / 2500 Weight 145 kg Intake: IV 2500 / 2500 NS Inj 1,000 ML @ Wide Open IV. 1999 / 1999 SIG BOLUS ONE Rx#:[id number] NS Inj 500 ML @ 1000 mls/hr IV. 500 / 500 SIG BOLUS MEREDITH Rx#:[id number] Other: Weight On Admission 145 kg Narrative: Gen.: No acute distress Head: Normocephalic. Atraumatic. EENT: Pupils equal round and reactive to light. Nose without drainage. Airway intact. Throat without injection. Cardiovascular: Regular rate and rhythm. No murmurs, rubs or gallops. Respiratory: Lungs clear to auscultation bilaterally. No wheezes or rhonchi. Abdomen: Soft, exquisitely tender to palpation in the left side/flank region, nondistended. No peritoneal signs. No obvious signs of bruising. Musculoskeletal: No gross deformities. No edema. Skin: No obvious rashes or erythema. Neuro: Sensory and motor grossly intact. Cranial nerves II through XII grossly intact. Results Labs CBC & Chem 7: 05/15/18 21:40 05/15/18 21:40 Imaging Impressions Chest X-Ray 05/15/18 22:09 CONCLUSION: Radiographic pattern consistent with pulmonary edema. Abdomen/Pelvis CT 05/15/18 22:14 CONCLUSION: 1. No acute abnormality to explain the patient's left upper quadrant pain. 2. Subcutaneous air involving the anterior abdominal wall without inflammation or fluid collection. This may relate to subcutaneous medication administration. 3. Prior cholecystectomy. 4. Small bilateral pleural effusions with passive atelectasis. Pulmonary Perfusion Imaging 05/15/18 22:14 CONCLUSION: No significant ventilation/perfusion mismatch is identified. Examination is low probability for PE. Caprini VTE Risk Assessment Caprini VTE Risk Assessment: Moderate/High Risk (score >= 2) Caprini Risk Assessment Model: Point Value = 1 Point Value = 2 Point Value = 3 Point Value = 5 Age 41-60 Minor surgery BMI > 25 kg/m2 Swollen legs Varicose veins or History of unexplained or recurrent spontaneous Oral contraceptives or hormone replacement Sepsis (< 1 month) Serious lung disease, including pneumonia (< 1 month) Abnormal pulmonary function Acute myocardial infarction Congestive heart failure (< 1 month) History of inflammatory bowel disease Medical patient at bed rest Age 61-74 Arthroscopic surgery Major open surgery (> 45 min) Laparoscopic surgery (> 45 min) Malignancy Confined to bed (> 72 hours) Immobilizing plaster cast Central venous access Age >= 75 History of VTE Family history of VTE Factor V Leiden Prothrombin [id number] Lupus anticoagulant Anticardiolipin antibodies Elevated serum homocysteine Heparin-induced thrombocytopenia Other congenital or acquired thrombophilia Stroke (< 1 month) Elective arthroplasty Hip, pelvis, or leg fracture Acute spinal cord injury (< 1 month) Prophylaxis Regimen: Total Risk Factor Score Risk Level Prophylaxis Regimen 0-1 Low Early ambulation 2 Moderate Order ONE of the following: *Sequential Compression Device (SCD) *Heparin 5000 units SQ BID 3-4 Higher Order ONE of the following medications: *Heparin 5000 units SQ TID *Enoxaparin/Lovenox 40 mg SQ daily (WT < 150 kg, CrCl > 30 mL/min) *Enoxaparin/Lovenox 30 mg SQ daily (WT < 150 kg, CrCl > 10-29 mL/min) *Enoxaparin/Lovenox 30 mg SQ BID (WT < 150 kg, CrCl > 30 mL/min) AND/OR *Sequential Compression Device (SCD) 5 or more Highest Order ONE of the following medications: *Heparin 5000 units SQ TID (Preferred with Epidurals) *Enoxaparin/Lovenox 40 mg SQ daily (WT < 150 kg, CrCl > 30 mL/min) *Enoxaparin/Lovenox 30 mg SQ daily (WT < 150 kg, CrCl > 10-29 mL/min) *Enoxaparin/Lovenox 30 mg SQ BID (WT < 150 kg, CrCl > 30 mL/min) AND *Sequential Compression Device (SCD) Assessment and Plan Plan Assessment/plan: 1. Abdominal/flank pain CT of the abdomen/pelvis negative for acute abnormality Status post hiatal hernia repair on Sunday Dr. Alves consulted, appreciate assistance 2. EKG changes Patient with T wave inversion in V2 through V5 which are new compared to 5 days ago Denies chest pain Troponin 0 0.030 ACS rule out pending; serial troponins/EKGs 3. Diabetes mellitus Sliding scale insulin Monitor blood glucose 4. Hyperlipidemia/GERD Continue home medication 5. AK I Creatinine 1.65, baseline unknown Likely chronic component Monitor renal function IV fluid hydration FEN: N.p.o. NS at 100 cc/hour Electrolytes: Monitor and replete as needed Holding pharmacologic anticoagulation until cleared by general surgery H&P: Quality VTE Deep Vein Thrombosis/Pulmonary Embolism Present on Admission: No
[2018-05-16] MEDS: Morphine Inj 4 MG/ML Vial IV.PUSH PRN ×3 (05:24→15:01)
[2018-05-16 05:44] LABS: Baso % (Auto) 0.7 % (0.0-2.0); Eos # (Auto) 0.3 th/mm3 (0.0-0.4); Eos % (Auto) 4.5 % (0.0-4.0); Hematocrit 31.6 % (35.0-46.0); Hemoglobin 10.5 gm/dL (11.6-15.3); Lymph # (Auto) 1.2 th/mm3 (1.0-4.8); Lymph % (Auto) 17.3 % (9.0-44.0); Mean Corpuscular HGB Conc 33.2 % (32.0-36.0); Mean Corpuscular Hemoglobin 31.4 pg (27.0-34.0); Mean Corpuscular Volume 94.5 fL (80.0-100.0); Mean Platelet Volume 7.6 fL (7.0-11.0); Mono # (Auto) 0.9 th/mm3 (0.0-0.9); Mono % (Auto) 13.7 % (0.0-8.0); Neut # (Auto) 4.3 th/mm3 (1.8-7.7); Neut % (Auto) 63.8 % (16.0-70.0); Platelet Count 208 th/mm3 (150-450); Red Blood Count 3.34 mil/mm3 (4.00-5.30); Red Cell Distribution Width 15.6 % (11.6-17.2); White Blood Count 6.8 th/mm3 (4.0-11.0)
[2018-05-16 06:10] LABS: Calcium 7.9 mg/dL (8.5-10.1); Carbon Dioxide 25.5 meq/L (21.0-32.0); Potassium 3.6 meq/L (3.5-5.1)
[2018-05-16 06:14] LABS: Troponin I 0.04 ng/mL (0.02-0.05)
[2018-05-16 06:26] LABS: CKMB Percent 1.5 % (0.0-4.0); Creatine Kinase MB 7.4 ng/mL (0.5-3.6)
[2018-05-16] MEDS: Lactobacillus Acidophilus/L. Spores Tablet PO SCH (08:44)
[2018-05-16] MEDS: Gabapentin 300 MG Capsule PO SCH ×3 (08:45→17:48)
[2018-05-16] MEDS: Ferrous Sulfate 325 MG Tablet PO SCH (08:45)
[2018-05-16] MEDS: Sodium Chloride 0.9% 2 ML Flush BID IV.FLUSH SCH ×2 (08:45→21:50)
[2018-05-16] MEDS: Insulin NovoLOG Aspart Correctional Sugar Inj SQ SCH ×4 (08:54→22:55)
--- NOTE | 2018-05-16 10:24 | XR ---
EXAM DATE: 05/16/2018 10:21 AM EST AGE/SEX: 77 years / Female INDICATIONS: Shortness of breath and chest pain. CLINICAL DATA: This is the patient's initial encounter. Patient reports that signs and symptoms have been present for 1 day and indicates a pain score of 8/10. MEDICAL/SURGICAL HISTORY: Chronic obstructive pulmonary disease. Congestive heart failure. Di abetes mellitus type II. Asthma. Hiatal hernia. . Hiatal hernia repair. COMPARISON: [facility] – [place], CHEST 1V SINGLE AP, 05/15/2018. . FINDINGS: Slight interval worsening in bilateral primarily basilar parenchymal opacities and effusions. CONCLUSION: Worsening CHF Electronically signed by: Leonel Jaeger MD Board Certified Radiologist 05/16/2018 10:23 AM EST
--- NOTE | 2018-05-16 11:22 | P.PNGS ---
Subjective Patient reports: still having pain, shortness of breath (Patient woke up yesterday morning with severe left-sided abdominal and chest pain. She felt short of breath. I instructed her daughter to bring her to the emergency department. Workup demonstrated a low risk for pulmonary embolus. She has bilateral pleural effusions which are relatively small. She continues complaints of left-sided chest pain. She continues complaints of shortness of breath. She is hemodynamically stable. She has nasal cannula oxygen.) Physical Exam Vital signs: Vital Signs 05/15/18 21:14 05/15/18 22:02 05/15/18 23:26 Temperature 97.5 F L Pulse Rate 102 H 71 75 Respiratory Rate 24 18 20 Blood Pressure 82/48 L 137/67 Pulse Oximetry 94 L 98 05/16/18 02:00 05/16/18 03:17 05/16/18 04:00 Temperature 98.3 F 97.8 F Pulse Rate 73 70 66 Respiratory Rate 16 20 16 Blood Pressure 109/56 L 145/67 H 117/58 L Pulse Oximetry 96 93 L 05/16/18 08:00 Temperature 97.8 F Pulse Rate 63 Respiratory Rate 19 Blood Pressure 143/87 H Pulse Oximetry 97 Intake & Output 05/15/18 05/16/18 05/16/18 18:59 06:59 18:59 Intake Total 2500 / 2500 Balance 2500 / 2500 Weight 145 kg Intake: IV 2500 / 2500 NS Inj 1,000 ML @ Wide Open IV. 1999 / 1999 SIG BOLUS ONE Rx#:[id number] NS Inj 500 ML @ 1000 mls/hr IV. 500 / 500 SIG BOLUS MEREDITH Rx#:[id number] Other: # Voids 1 Weight On Admission 145 kg Narrative: She is awake and alert. She does have dyspnea on exertion. She is pink. She her breath sounds are clear anteriorly bilaterally. Her heart sounds sound regular. Her surgical incisions are healing well beneath skin glue. There is no erythema or drainage. She has palpable tenderness on the left costal margin consistent with a exam of costochondritis. Beneath that in the abdominal wall there is some mild tenderness to palpation, no rebound or guarding. Her extremities are nonedematous. Results - Labs 05/16/18 05:30 05/16/18 05:30 Laboratory Results - last 24 hr 02/06/19 02/06/19 02/06/19 21:40 21:40 21:40 WBC 9.1 RBC 3.84 L Hgb 12.7 Hct 36.9 MCV 96.0 MCH 33.0 MCHC 34.4 RDW 15.5 Plt Count 268 MPV 7.8 Neut % (Auto) 74.3 H Lymph % (Auto) 10.2 [place] % (Auto) 11.0 H Eos % (Auto) 3.5 Baso % (Auto) 1.0 Neut # (Auto) 6.8 Lymph # (Auto) 0.9 L [place] # (Auto) 1.0 H Eos # (Auto) 0.3 Baso # (Auto) 0.1 WBC Differential . Differential Comment Auto diff final Sodium 140 Potassium 3.4 L Chloride 103 Carbon Dioxide 25.8 Anion Gap 11 BUN 14 Creatinine 1.65 H Estimated GFR 30 L POC Glucose Random Glucose 145 H Calcium 8.5 Magnesium 1.5 Total Bilirubin 0.6 AST 30 ALT 33 Alkaline Phosphatase 76 Total Creatine Kinase CK-MB (CK-2) CK-MB (CK-2) % Troponin I 0.03 B-Natriuretic Peptide Total Protein 7.1 Albumin 3.0 L Lipase 163 Urine Color Urine Clarity Urine pH Ur Specific [place] Urine Protein Urine Glucose (UA) Urine Ketones Urine Occult Blood Urine Nitrate Urine Bilirubin Urine Urobilinogen Ur Leukocyte Esterase Urine RBC Urine WBC Ur Squamous Epith Cells Urine Bacteria Micro UA Comment Ur Microscopic Review Urine Culture Comments 05/15/18 05/15/18 05/16/18 21:40 23:30 05:30 WBC RBC Hgb Hct MCV MCH MCHC RDW Plt Count MPV Neut % (Auto) Lymph % (Auto) [place] % (Auto) Eos % (Auto) Baso % (Auto) Neut # (Auto) Lymph # (Auto) [place] # (Auto) Eos # (Auto) Baso # (Auto) WBC Differential Differential Comment Sodium Potassium Chloride Carbon Dioxide Anion Gap BUN Creatinine Estimated GFR POC Glucose Random Glucose Calcium Magnesium Total Bilirubin AST ALT Alkaline Phosphatase Total Creatine Kinase 478 H CK-MB (CK-2) 7.4 H CK-MB (CK-2) % 1.5 Troponin I 0.04 B-Natriuretic Peptide 85 Total Protein Albumin Lipase Urine Color Yellow Urine Clarity Hazy H Urine pH 6.0 Ur Specific [place] 1.006 Urine Protein Negative Urine Glucose (UA) Negative Urine Ketones Trace H Urine Occult Blood Small H Urine Nitrate Negative Urine Bilirubin Negative Urine Urobilinogen Less than 2 Ur Leukocyte Esterase Small H Urine RBC 2 Urine WBC 14 H Ur Squamous Epith Cells 1 Urine Bacteria Rare H Micro UA Comment Culture indicated Ur Microscopic Review Not Reportable Urine Culture Comments Culture indicated 05/16/18 05/16/18 05/16/18 05:30 05:30 08:53 WBC 6.8 RBC 3.34 L Hgb 10.5 L D Hct 31.6 L MCV 94.5 MCH 31.4 MCHC 33.2 RDW 15.6 Plt Count 208 MPV 7.6 Neut % (Auto) 63.8 Lymph % (Auto) 17.3 [place] % (Auto) 13.7 H Eos % (Auto) 4.5 H Baso % (Auto) 0.7 Neut # (Auto) 4.3 Lymph # (Auto) 1.2 [place] # (Auto) 0.9 Eos # (Auto) 0.3 Baso # (Auto) 0.0 WBC Differential . Differential Comment Auto diff final Sodium 144 Potassium 3.6 Chloride 111 H D Carbon Dioxide 25.5 Anion Gap 8 BUN 12 Creatinine 1.20 H Estimated GFR 44 L POC Glucose 80 Random Glucose 101 Calcium 7.9 L Magnesium Total Bilirubin AST ALT Alkaline Phosphatase Total Creatine Kinase CK-MB (CK-2) CK-MB (CK-2) % Troponin I B-Natriuretic Peptide Total Protein Albumin Lipase Urine Color Urine Clarity Urine pH Ur Specific [place] Urine Protein Urine Glucose (UA) Urine Ketones Urine Occult Blood Urine Nitrate Urine Bilirubin Urine Urobilinogen Ur Leukocyte Esterase Urine RBC Urine WBC Ur Squamous Epith Cells Urine Bacteria Micro UA Comment Ur Microscopic Review Urine Culture Comments - Imaging Imaging: ITS Impressions Abdomen/Pelvis CT 05/15/18 22:14 CONCLUSION: 1. No acute abnormality to explain the patient's left upper quadrant pain. 2. Subcutaneous air involving the anterior abdominal wall without inflammation or fluid collection. This may relate to subcutaneous medication administration. 3. Prior cholecystectomy. 4. Small bilateral pleural effusions with passive atelectasis. Pulmonary Perfusion Imaging 05/15/18 22:14 CONCLUSION: No significant ventilation/perfusion mismatch is identified. Examination is low probability for PE. Chest X-Ray 05/16/18 10:08 CONCLUSION: Worsening CHF Assessment and Plan - Assessment (1) Congestive heart failure as early postoperative complication Status: Acute (2) Hiatal hernia with gastroesophageal reflux Code(s): K21.9 - Gastro-esophageal reflux disease without esophagitis; K44.9 - Diaphragmatic hernia without obstruction or gangrene Status: Acute (3) Bilateral pleural effusion Code(s): J90 - Pleural effusion, not elsewhere classified Status: Acute (4) Acute costochondritis Code(s): M94.0 - Chondrocostal junction syndrome [Tietze] Status: Acute Plan: The patient is 6 days post laparoscopic repair of hiatal hernia with partial fundoplication for hiatal hernia with gastroesophageal reflux disease. She was doing pretty well postoperatively using pain medication and Flexeril for her back and neck pain when she woke up yesterday morning with severe stabbing left- sided chest and abdominal pain and her daughter described her lips is turning blue. She was taken to the emergency department where she was divided some IV fluids and pain medication. A CT scan of the abdomen pelvis demonstrates expected postsurgical changes with small bilateral pleural effusions. A VQ scan was low probability for pulmonary embolus. The chest x-ray shows slight increase in size in the pleural effusion some mild pulmonary edema. She is given some Lasix. Her laboratory values do not demonstrate an acute NM. She remains very tender at her left costal margin consistent on exam with costochondritis. I discussed her care with Dr. Eric Enrique her clinical engineering director who requests an echocardiogram be performed. He indicates he will come by to see her later today. It is okay if she has clear liquids to drink. I will order that. Talked to the pharmacy about putting in an order for Dilaudid 0.5 mg IV every 4 hours as needed pain breakthrough. I have ordered a heating pad on low to medium for her left costal margin. We will continue to follow along. - Plan Discussed Condition With: Dr. Eric Enrique, patient.
[2018-05-16] MEDS: HYDROmorphone PF Inj 0.5 MG/0.5 ML Syringe IV.PUSH PRN ×3 (11:39→21:45)
[2018-05-16 11:51] LABS: Troponin I 0.04 ng/mL (0.02-0.05)
[2018-05-16 12:03] LABS: CKMB Percent 1.5 % (0.0-4.0); Creatine Kinase MB 6.9 ng/mL (0.5-3.6)
--- NOTE | 2018-05-16 16:58 | ECHRPT ---
Indication: Effusion CONCLUSIONS Normal left ventricular size. Wall thickness is measured at the upper limits of normal. The left ventricular systolic function is normal with an estimated ejection fraction in the range of 55-60%. No definite regional wall motion abnormalities are present. Trace mitral valve regurgitation. The aortic valve is not well visualized. BP: / HR: Rhythm: MEASUREMENTS (Male / Female) Normal Values Technical Quality:Fair 2D ECHO LV Diastolic Diameter PLAX 3.4 cm 4.2 - 5.9 / 3.9 - 5.3 cm LV Systolic Diameter PLAX 2.5 cm IVS Diastolic Thickness 1.1 cm 0.6 - 1.0 / 0.6 - 0.9 cm LVPW Diastolic Thickness 1.0 cm 0.6 - 1.0 / 0.6 - 0.9 cm LV Relative Wall Thickness 0.6 LVOT Diameter 1.9 cm Aortic Root Diameter 3.1 cm LA Systolic Diameter LX 3.7 cm 3.0 - 4.0 / 2.7 - 3.8 cm M-MODE AV Cusp Separation MM 1.5 cm DOPPLER AV Peak Velocity 171.0 cm/s AV Peak Gradient 11.7 mmHg LVOT Peak Velocity 111.0 cm/s LVOT Peak Gradient 4.9 mmHg AV Area Cont Eq pk 1.8 cm Mitral E Point Velocity 46.4 cm/s Mitral A Point Velocity 80.9 cm/s Mitral E to A Ratio 0.6 LV E' Lateral Velocity 9.4 cm/s Mitral E to LV E' Lateral Ratio 5.0 LV E' Septal Velocity 6.1 cm/s Mitral E to LV E' Septal Ratio 7.6 TR Peak Velocity 236.0 cm/s TR Peak Gradient 22.3 mmHg Right Atrial Pressure 10.0 mmHg Pulmonary Artery Systolic Pressu 32.3 mmHg Right Ventricular Systolic Press 32.3 mmHg PV Peak Velocity 110.0 cm/s PV Peak Gradient 4.8 mmHg FINDINGS LEFT VENTRICLE Normal left ventricular size. Wall thickness is measured at the upper limits of normal. The left ventricular systolic function is normal with an estimated ejection fraction in the range of 55-60%. No definite regional wall motion abnormalities are present. RIGHT VENTRICLE Normal right ventricular size and systolic function. LEFT ATRIUM The left atrial size is normal. RIGHT ATRIUM The right atrial size is normal. ATRIAL SEPTUM Normal atrial septal thickness without atrial level shunting by limited color doppler interrogation. AORTA The aortic root and proximal ascending aorta are normal in size on limited imaging. MITRAL VALVE Trace mitral valve regurgitation. AORTIC VALVE The aortic valve is not well visualized. TRICUSPID VALVE Structurally normal tricuspid valve. No tricuspid valve stenosis or regurgitation. PULMONARY VALVE The pulmonary valve is not well visualized. VESSELS The inferior vena cava was not well visualized. PERICARDIUM No pericardial effusion. Chico Olivarez MD (Electronically Signed) Final Date:16 May 2018 16:57
--- NOTE | 2018-05-16 18:10 | MB ---
cc: Eric Enrique MD DATE: 05/16/2018 REQUESTING PHYSICIAN: Eric Alves MD CHIEF COMPLAINT: Chest pain. IMPRESSION: 1. Postoperative pleuritic chest pain, status post Kayleen fundoplication. 2. History of hypertension. 3. History of chronic obstructive pulmonary disease. RECOMMENDATIONS: Pain management only. No evidence of cardiovascular process ongoing. SUBJECTIVE: Ms. [place] is well known to me. She is a 77-year-old female recently operated on by Dr. Alves this past Sunday. Postoperative pain level progressively increased over the course of the next 5 days, resulting in her coming to the hospital today where she was found to have normal troponins, T-wave inversions anteriorly on her electrocardiogram, and a normal echocardiogram. Her pain is clearly pleuritic. CT scan was negative for pulmonary embolus. PAST MEDICAL HISTORY: Well-documented in the chart. It is remarkable for tonsillectomy, cholecystectomy, hernia repair, history of prior atherosclerotic heart disease with angioplasty in distant past. ALLERGIES: SHE HAS MULTIPLE MEDICATIONS ALLERGIES INCLUDING ADENOSINE, AMOXICILLIN, CEPHALEXIN, LATEX, OXYCODONE, PROCAINE, ____, BAND-AIDS. MEDICATIONS: 1. Atorvastatin. 2. Acetaminophen. 3. Flexeril. 4. Neurontin. 5. Glucagon. 6. Novolin insulin. 7. Melatonin. 8. Nitroglycerin p.r.n. HOME MEDICATIONS: 1. Pantoprazole. 2. Paroxetine. 3. Tramadol. 4. Cyclobenzaprine. 5. Glipizide. 6. Atorvastatin. PHYSICAL EXAMINATION: VITAL SIGNS: Blood pressure is 112/60, the heart rate 76. HEENT: Pupils are equal. Sclerae clear. NECK: Veins are not distended. LUNGS: Clear. CARDIAC: No murmurs or gallops. ABDOMEN: Postoperative. EXTREMITIES: Without edema. NEUROLOGIC: She has fluent speech, moves all extremities. Sensory and motor intact. DIAGNOSTIC DATA: Electrocardiogram was reviewed. Laboratory was reviewed. DISCUSSION: I discussed with her daughter and her friend that I do not believe this is an acute cardiovascular process. Eric Enrique MD [facility]/cecily/janene , 05:20 PM , 05:27 PM
--- NOTE | 2018-05-17 01:28 | ECG ---
Date Performed: 05/15/2018 Time Performed: 22:30:30 PTAGE: 77 years EKG: Sinus rhythm RIGHT BUNDLE BRANCH BLOCK ABNORMAL ECG PREVIOUS TRACING : 05/10/2018 13.15 Since the previous tracing, no significant change noted DOCTOR: Matt Mejia Interpretating Date/Time 05/17/2018 01:27:22
--- NOTE | 2018-05-17 01:32 | ECG ---
Date Performed: 05/16/2018 Time Performed: 01:36:01 PTAGE: 77 years EKG: Sinus rhythm POSSIBLE RIGHT VENTRICULAR CONDUCTION DELAY NONSPECIFIC T-WAVE ABNORMALITY BORDERLINE ECG Since the PREVIOUS TRACING , no significant change noted DOCTOR: Matt Mejia Interpretating Date/Time 05/17/2018 01:31:55
--- NOTE | 2018-05-17 01:37 | ECG ---
Date Performed: 05/16/2018 Time Performed: 04:22:40 PTAGE: 77 years EKG: Sinus rhythm MODERATE INTRAVENTRICULAR CONDUCTION DELAY MODERATE T-WAVE ABNORMALITY, CONSIDER ANTERIOR ISCHEMIA A BNORMAL ECG PREVIOUS TRACING : 05/15/2018 22.30 Since the previous tracing, no significant change noted DOCTOR: Matt Mejia Interpretating Date/Time 05/17/2018 01:35:54
--- NOTE | 2018-05-17 01:53 | ECG ---
Date Performed: 05/16/2018 Time Performed: 10:27:20 PTAGE: 77 years EKG: Sinus rhythm MODERATE INTRAVENTRICULAR CONDUCTION DELAY MODERATE T-WAVE ABNORMALITY, CONSIDER ANTERIOR ISCHEMIA A BNORMAL ECG PREVIOUS TRACING : 05/16/2018 04.22 Since the previous tracing, no significant change noted DOCTOR: Matt Mejia Interpretating Date/Time 05/17/2018 01:52:54
[2018-05-17] MEDS ORDERED: Hold Metfromin until further notice OTHER ONE (03:03)
--- NOTE | 2018-05-17 04:11 | CT ---
EXAM DATE: 05/17/2018 3:47 AM EST AGE/SEX: 77 years / Female INDICATIONS: Chest pain and shortness of breath. CLINICAL DATA: This is the patient's initial encounter. Patient reports that signs and symptoms have been present for 1 day and indicates a pain score of 7/10. MEDICAL/SURGICAL HISTORY: Chronic obstructive pulmonary disease. Hypertension. Diabetes. GERD. Cholecystectomy. RADIATION DOSE: 10.72 CTDI (mGy) [place] [facility] [place] 05/15/2018. . TECHNIQUE: Volumetric scanning was performed using a multi-row detector CT scanner during bolus infu moises of 75 ml Omnipaque 350 (iohexol) nonionic water-soluble contrast as a single exam dose. The saray a was post processed with a variety of visualization algorithms including full volume maximum intensi ty projection and sliding thin slab reformation. Using automated exposure control and adjustment of the mA and/or kV according to patient size, radiation dose was kept as low as reasonably achievable t o obtain optimal diagnostic quality images. DICOM format image data is available electronically for review and comparison. FINDINGS: Pulmonary Arteries: No filling defects are seen in the pulmonary arteries through the segmental vess els. The main pulmonary artery is normal in diameter. Lung: Airspace consolidation adjacent pleural effusions at the lung bases. Pleura: Small bilateral pleural effusions. Mediastinum: Heart is unremarkable without pericardial effusion. coronary artery calcifications.No e vidence of mediastinal or hilar adenopathy. Osseous Structures: No abnormal focal lytic or blastic bony lesions. Other: Visulaized upper abdomen is unremarkable. CONCLUSION: 1. No CT evidence for pulmonary artery embolism as questioned. 2. Redemonstration of small bilateral pleural effusions with airspace consolidation at the lung base s. 3. Coronary artery calcifications. Electronically signed by: Gerry Mathew MD Board Certified Radiologist 05/17/2018 4:10 AM EST
[2018-05-17] MEDS: Insulin NovoLOG Aspart Correctional Sugar Inj SQ SCH ×5 (04:20→20:22)
--- NOTE | 2018-05-17 08:18 | P.PNIM ---
Subjective Interval history: Follow-up for flank pain, shortness of breath, cough, UTI, pneumonia. Patient's chest CT last night was positive for consolidation, concern for pneumonia. Patient does endorse recent cough, sometimes productive of sputum, unknown color. She reports continued shortness of breath. Her O2 sats are currently 95% on 2 L nasal cannula. She reports continued left posterior upper thorax pain, worse with deep inspiration. She denies fevers or chills overnight. Denies any specific chest pains. Denies any other medical complaints at this time. Physical Exam Vital signs: Vital Signs 05/16/18 09:00 05/16/18 11:47 05/16/18 15:37 Temperature 98.4 F Pulse Rate 66 76 Respiratory Rate 19 18 Blood Pressure 135/65 Pulse Oximetry 94 L 05/16/18 15:53 05/16/18 19:01 05/16/18 20:00 Temperature 98.2 F 98.2 F Pulse Rate 81 83 Respiratory Rate 17 20 18 Blood Pressure 111/59 L 117/60 Pulse Oximetry 94 L 93 L 05/16/18 20:05 05/17/18 00:00 05/17/18 03:55 Temperature 98.7 F Pulse Rate 83 83 106 H Respiratory Rate 16 Blood Pressure 98/57 L Pulse Oximetry 93 L 05/17/18 04:00 05/17/18 07:33 Temperature 98.9 F 98.9 F Pulse Rate 95 H 76 Respiratory Rate 16 16 Blood Pressure 130/67 155/72 H Pulse Oximetry 92 L 94 L Intake & Output 05/16/18 05/17/18 05/17/18 18:59 06:59 18:59 Intake Total 400 / 400 Balance 400 / 400 Intake: IV 400 / 400 NS Inj 1,000 ML @ 100 mls/hr IV 400 / 400 .CONT .Q10H [facility] Rx#:[id number] Other: # Voids 2 1 Date of Last Bowel Movement 05/15/18 Narrative: GENERAL: Well-nourished, well-developed pleasant elderly female patient in [facility]. SKIN: Warm and dry. No rash. HEENT: Normocephalic. Atraumatic. Pupils equal and round. Mucous membranes pink and moist. CARDIOVASCULAR: Regular rate and rhythm. No murmur appreciated. RESPIRATORY: No accessory muscle use. Breath sounds diminished at bilateral bases, otherwise clear to auscultation. Breath sounds equal bilaterally. GASTROINTESTINAL: Abdomen soft, nondistended, mild diffuse tenderness to palpation. Normoactive bowel sounds x4. MUSCULOSKELETAL: No obvious deformities. Extremities without clubbing, cyanosis , or edema. TTP at left posterior lateral upper thorax. NEUROLOGICAL: Awake and alert. No obvious cranial nerve deficits. Moving all extremities spontaneously. Normal speech. PSYCHIATRIC: Appropriate mood and affect; insight and judgment normal. Results Labs CBC & Chem 7: 05/17/18 08:39 05/17/18 08:39 Labs: Microbiology 05/15/18 23:30 Clean Catch Urine Urine Culture - Preliminary gram negative rods Imaging Imaging: Impressions Chest X-Ray 05/16/18 10:08 CONCLUSION: Worsening CHF Chest CTA 05/17/18 00:00 CONCLUSION: 1. No CT evidence for pulmonary artery embolism as questioned. 2. Redemonstration of small bilateral pleural effusions with airspace consolidation at the lung bases. 3. Coronary artery calcifications. Assessment and Plan (1) Congestive heart failure as early postoperative complication: Status: Acute (2) Hiatal hernia with gastroesophageal reflux: Code(s): K21.9 - Gastro-esophageal reflux disease without esophagitis; K44.9 - Diaphragmatic hernia without obstruction or gangrene Status: Acute (3) Bilateral pleural effusion: Code(s): J90 - Pleural effusion, not elsewhere classified Status: Acute (4) Acute costochondritis: Code(s): M94.0 - Chondrocostal junction syndrome [Tietze] Status: Acute Plan 77-year-old female with a past medical history significant for diabetes mellitus , COPD, hyperlipidemia and GERD presents to the emergency department for the evaluation of left-sided abdominal/flank pain. Healthcare Associated Pneumonia with Pleural Effusions: acute. +SOB. -CXR 2/ concerning for pulm edema - given IV Lasix 40mg x1 with good response -Chest CTA negative for PE, shows small bilateral pleural effusions with airspace consolidation at the lung bases -Give lasix 40mg daily x3days -Started on antibiotics with IV Levaquin (allergies to amoxicillin and cephalosporins) -O2 as needed UTI: acute, UA with leuks and WBCs -Urine culture with E.coli - resistance to fluoroquinolones -Give bactrim 1 tab po bid x3days Abdominal/flank pain: possibly secondary to recent surgery vs pneumonia vs pleuritic vs musculoskeletal vs UTI -CT of the abdomen/pelvis negative for acute abnormality -Status post hiatal hernia repair on Wednesday 05/10 -Dr. Alves consulted, appreciate assistance, unlikely related to surgery EKG changes: Patient with T wave inversion in V2 through V5 which are new compared to 5 days ago -Patient denies chest pain -Trend serial cardiac enzymes, troponin 0 0.03, 0.04, 0.04 -Consulted patient's distribution center assistant, Dr. Enrique, unlikely ACS -Echocardiogram with EF 55-60% Diabetes mellitus: chronic -Monitor Accu-Cheks and cover with sliding scale insulin Hyperlipidemia: chronic -Continue statin GERD: chronic -Continue protonix CORNELL: Creatinine 1.65, baseline unknown. Possibly secondary to recent decreased oral intake -Given IV fluid hydration, however patient developed SOB with mild pulm edema , s/p IV Lasix 40mg x1 -Renal function improving, Cr 1.23 DVT Prophylaxis: teds/SCDs; Holding pharmacologic anticoagulation until cleared by general surgery Progress Note: Quality VTE Deep Vein Thrombosis/Pulmonary Embolism Present on Admission: No
[2018-05-17 09:09] LABS: Baso % (Auto) 0.4 % (0.0-2.0); Eos # (Auto) 0.3 th/mm3 (0.0-0.4); Eos % (Auto) 3.8 % (0.0-4.0); Hemoglobin 10.3 gm/dL (11.6-15.3); Lymph % (Auto) 13.2 % (9.0-44.0); Mean Corpuscular HGB Conc 33.4 % (32.0-36.0); Mean Corpuscular Hemoglobin 32.4 pg (27.0-34.0); Mean Corpuscular Volume 97.1 fL (80.0-100.0); Mean Platelet Volume 7.6 fL (7.0-11.0); Mono % (Auto) 12.6 % (0.0-8.0); Neut # (Auto) 5.3 th/mm3 (1.8-7.7); Platelet Count 201 th/mm3 (150-450); Red Blood Count 3.19 mil/mm3 (4.00-5.30); Red Cell Distribution Width 14.9 % (11.6-17.2); White Blood Count 7.5 th/mm3 (4.0-11.0)
[2018-05-17 09:32] LABS: Calcium 8.3 mg/dL (8.5-10.1); Carbon Dioxide 22.9 meq/L (21.0-32.0); Potassium 4.1 meq/L (3.5-5.1)
[2018-05-17 09:36] LABS: Chol/HDL Ratio 3.39 Ratio; HDL Cholesterol 39.2 mg/dL (40.0-60.0)
[2018-05-17] MEDS: Sodium Chloride 0.9% 2 ML Flush BID IV.FLUSH SCH ×2 (10:04→20:22)
[2018-05-17] MEDS: Gabapentin 300 MG Capsule PO SCH ×3 (10:05→18:08)
[2018-05-17] MEDS: Lactobacillus Acidophilus/L. Spores Tablet PO SCH (10:05)
[2018-05-17] MEDS: Senna/Docusate Sodium 8.6/50 MG Tablet PO SCH ×2 (10:05→20:22)
[2018-05-17] MEDS: Ferrous Sulfate 325 MG Tablet PO SCH (10:05)
[2018-05-17] MEDS: Morphine Inj 4 MG/ML Vial IV.PUSH PRN ×2 (10:20→20:28)
--- NOTE | 2018-05-17 14:58 | P.PNGS ---
Subjective Patient reports: feels better (Tolerating clear liquids without problems. Is not had any reflux while in the hospital. Left lateral inferior chest wall pain still present. Heating pad helps. Pain medication helps.), still having pain, other (She denies classic symptoms of UTI.) Physical Exam Vital signs: Vital Signs 05/16/18 15:37 05/16/18 15:53 05/16/18 19:01 Temperature 98.2 F Pulse Rate 81 Respiratory Rate 18 17 20 Blood Pressure 111/59 L Pulse Oximetry 94 L 05/16/18 20:00 05/16/18 20:05 05/17/18 00:00 Temperature 98.2 F 98.7 F Pulse Rate 83 83 83 Respiratory Rate 18 16 Blood Pressure 117/60 98/57 L Pulse Oximetry 93 L 93 L 05/17/18 03:55 05/17/18 04:00 05/17/18 07:33 Temperature 98.9 F 98.9 F Pulse Rate 106 H 95 H 76 Respiratory Rate 16 16 Blood Pressure 130/67 155/72 H Pulse Oximetry 92 L 94 L 05/17/18 08:00 05/17/18 11:51 Temperature 98.5 F Pulse Rate 80 82 Respiratory Rate 18 Blood Pressure 119/65 Pulse Oximetry 95 Intake & Output 05/16/18 05/17/18 05/17/18 18:59 06:59 18:59 Intake Total 400 / 400 150 / 150 Balance 400 / 400 150 / 150 Intake: IV 400 / 400 150 / 150 NS Inj 1,000 ML @ 100 mls/hr IV 400 / 400 .CONT .Q10H [facility] Rx#:[id number] Levaquin 750 mg Premix Inj 150 150 / 150 ML @ 100 mls/hr IV.SIG Q24H [facility] Rx#:[id number] Other: # Voids 2 1 Date of Last Bowel Movement 05/15/18 Narrative: Lungs are clear to auscultation anteriorly bilaterally. Heart sounds are regular without obvious murmur rub or gallop. Abdomen is soft and nondistended. She has minimal postsurgical discomfort. Incisions are healing beneath skin glue. Tenderness inferior lateral chest wall. Pain appears clinically consistent with a pleuritic type chest pain. Results - Labs 05/17/18 08:39 05/17/18 08:39 Laboratory Results - last 24 hr 05/15/18 05/16/18 05/16/18 23:30 17:54 21:40 WBC RBC Hgb Hct MCV MCH MCHC RDW Plt Count MPV Neut % (Auto) Lymph % (Auto) Upson % (Auto) Eos % (Auto) Baso % (Auto) Neut # (Auto) Lymph # (Auto) Upson # (Auto) Eos # (Auto) Baso # (Auto) WBC Differential Differential Comment D-Dimer Quant (PE/DVT) Sodium Potassium Chloride Carbon Dioxide Anion Gap BUN Creatinine Estimated GFR POC Glucose 101 108 Random Glucose Calcium Triglycerides Cholesterol LDL Cholesterol, Calc HDL Cholesterol Cholesterol/HDL Ratio Urine Color Yellow Urine Clarity Hazy H Urine pH 6.0 Ur Specific [place] 1.006 Urine Protein Negative Urine Glucose (UA) Negative Urine Ketones Trace H Urine Occult Blood Small H Urine Nitrate Negative Urine Bilirubin Negative Urine Urobilinogen Less than 2 Ur Leukocyte Esterase Small H Urine RBC 2 Urine WBC 14 H Ur Squamous Epith Cells 1 Urine Bacteria Rare H Micro UA Comment Culture indicated Urine Culture Comments Culture indicated 05/16/18 05/17/18 05/17/18 23:48 04:59 08:39 WBC 7.5 RBC 3.19 L Hgb 10.3 L Hct 31.0 L MCV 97.1 MCH 32.4 MCHC 33.4 RDW 14.9 Plt Count 201 MPV 7.6 Neut % (Auto) 70.0 Lymph % (Auto) 13.2 Upson % (Auto) 12.6 H Eos % (Auto) 3.8 Baso % (Auto) 0.4 Neut # (Auto) 5.3 Lymph # (Auto) 1.0 Upson # (Auto) 1.0 H Eos # (Auto) 0.3 Baso # (Auto) 0.0 WBC Differential . Differential Comment Auto diff final D-Dimer Quant (PE/DVT) 9.01 H Sodium Potassium Chloride Carbon Dioxide Anion Gap BUN Creatinine Estimated GFR POC Glucose 116 H Random Glucose Calcium Triglycerides Cholesterol LDL Cholesterol, Calc HDL Cholesterol Cholesterol/HDL Ratio Urine Color Urine Clarity Urine pH Ur Specific Redstone Urine Protein Urine Glucose (UA) Urine Ketones Urine Occult Blood Urine Nitrate Urine Bilirubin Urine Urobilinogen Ur Leukocyte Esterase Urine RBC Urine WBC Ur Squamous Epith Cells Urine Bacteria Micro UA Comment Urine Culture Comments 05/17/18 05/17/18 05/17/18 08:39 09:02 14:33 WBC RBC Hgb Hct MCV MCH MCHC RDW Plt Count MPV Neut % (Auto) Lymph % (Auto) Upson % (Auto) Eos % (Auto) Baso % (Auto) Neut # (Auto) Lymph # (Auto) Upson # (Auto) Eos # (Auto) Baso # (Auto) WBC Differential Differential Comment D-Dimer Quant (PE/DVT) Sodium 140 Potassium 4.1 Chloride 106 Carbon Dioxide 22.9 Anion Gap 11 BUN 17 Creatinine 1.23 H Estimated GFR 43 L POC Glucose 99 148 H Random Glucose 87 Calcium 8.3 L Triglycerides 109 Cholesterol 133 LDL Cholesterol, Calc 72 HDL Cholesterol 39.2 L Cholesterol/HDL Ratio 3.39 Urine Color Urine Clarity Urine pH Ur Specific [place] Urine Protein Urine Glucose (UA) Urine Ketones Urine Occult Blood Urine Nitrate Urine Bilirubin Urine Urobilinogen Ur Leukocyte Esterase Urine RBC Urine WBC Ur Squamous Epith Cells Urine Bacteria Micro UA Comment Urine Culture Comments - Imaging Imaging: ITS Impressions Abdomen/Pelvis CT 05/15/18 22:14 CONCLUSION: 1. No acute abnormality to explain the patient's left upper quadrant pain. 2. Subcutaneous air involving the anterior abdominal wall without inflammation or fluid collection. This may relate to subcutaneous medication administration. 3. Prior cholecystectomy. 4. Small bilateral pleural effusions with passive atelectasis. Pulmonary Perfusion Imaging 05/15/18 22:14 CONCLUSION: No significant ventilation/perfusion mismatch is identified. Examination is low probability for PE. Chest X-Ray 05/16/18 10:08 CONCLUSION: Worsening CHF Chest CTA 05/17/18 00:00 CONCLUSION: 1. No CT evidence for pulmonary artery embolism as questioned. 2. Redemonstration of small bilateral pleural effusions with airspace consolidation at the lung bases. 3. Coronary artery calcifications. Assessment and Plan - Assessment (1) Congestive heart failure as early postoperative complication Status: Acute (2) Hiatal hernia with gastroesophageal reflux Code(s): K21.9 - Gastro-esophageal reflux disease without esophagitis; K44.9 - Diaphragmatic hernia without obstruction or gangrene Status: Acute (3) Bilateral pleural effusion Code(s): J90 - Pleural effusion, not elsewhere classified Status: Acute (4) Acute costochondritis Code(s): M94.0 - Chondrocostal junction syndrome [Tietze] Status: Acute Plan: The patient is 6 days post laparoscopic repair of hiatal hernia with partial fundoplication for hiatal hernia with gastroesophageal reflux disease. She was doing pretty well postoperatively using pain medication and Flexeril for her back and neck pain when she woke up yesterday morning with severe stabbing left- sided chest and abdominal pain and her daughter described her lips is turning blue. She was taken to the emergency department where she was divided some IV fluids and pain medication. A CT scan of the abdomen pelvis demonstrates expected postsurgical changes with small bilateral pleural effusions. A VQ scan was low probability for pulmonary embolus. The chest x-ray shows slight increase in size in the pleural effusion some mild pulmonary edema. She is given some Lasix. Her laboratory values do not demonstrate an acute ND. She remains very tender at her left costal margin consistent on exam with costochondritis. I discussed her care with Dr. Eric Enrique her clinical data abstractor who requests an echocardiogram be performed. He indicates he will come by to see her later today. It is okay if she has clear liquids to drink. I will order that. Talked to the pharmacy about putting in an order for Dilaudid 0.5 mg IV every 4 hours as needed pain breakthrough. I have ordered a heating pad on low to medium for her left costal margin. We will continue to follow along. (5) Urinary tract infection Code(s): N39.0 - Urinary tract infection, site not specified Status: Acute - Plan The patient is one-week postop laparoscopic repair of large hiatal hernia with partial fundoplication. Patient developed left lateral chest wall pain, pleuritic type chest pain, postop day 5. She is found to have mild pulmonary edema and is responded to Lasix. She was found to have a urinary tract infection is been placed on antibiotics. Her workup is been negative for pulmonary embolus, negative for acute cardiac problem. I would advance her diet to full liquids. Meds are being made for Lasix and antibiotics through the weekend. As she improves and her pain is tolerable she can be discharged from a general surgery standpoint. May be Sunday. We are available to see her on an as-needed basis over the weekend. Please let us now. Thank you. Discussed Condition With: Patient
[2018-05-18] MEDS: Morphine Inj 4 MG/ML Vial IV.PUSH PRN ×4 (01:03→22:31)
[2018-05-18] MEDS: Insulin NovoLOG Aspart Correctional Sugar Inj SQ SCH ×5 (04:35→22:25)
[2018-05-18] MEDS: Ferrous Sulfate 325 MG Tablet PO SCH (08:18)
[2018-05-18] MEDS: Senna/Docusate Sodium 8.6/50 MG Tablet PO SCH ×2 (08:18→22:25)
[2018-05-18] MEDS: Lactobacillus Acidophilus/L. Spores Tablet PO SCH (08:18)
[2018-05-18] MEDS: Gabapentin 300 MG Capsule PO SCH ×3 (08:19→17:37)
[2018-05-18] MEDS: Sodium Chloride 0.9% 2 ML Flush BID IV.FLUSH SCH ×2 (08:20→22:25)
--- NOTE | 2018-05-18 11:54 | P.PNIM ---
Subjective Interval history: The patient is a pleasant 77-year-old female but appears chronically ill and tired. Patient is sleepy says she feels very tired and with generalized weakness. Able to eat. With some shortness of breath currently on 4 L by nasal cannula. Denies lower extremity edema. Has productive cough with brownish sputum. No chest pain. No nausea or vomiting. No abdominal pain. Physical Exam Vital signs: Vital Signs 05/17/18 11:51 05/17/18 16:16 05/17/18 18:22 Temperature 98.5 F 98.6 F Pulse Rate 82 78 86 Respiratory Rate 18 Blood Pressure 119/65 127/68 152/83 H Pulse Oximetry 95 97 96 05/17/18 19:59 05/17/18 20:00 05/17/18 22:56 Temperature 98.7 F 98.4 F Pulse Rate 78 98 H Respiratory Rate 18 20 Blood Pressure 105/67 102/60 Pulse Oximetry 98 98 98 05/17/18 23:08 05/18/18 01:06 05/18/18 02:38 Temperature Pulse Rate 77 82 Respiratory Rate 20 Blood Pressure Pulse Oximetry 05/18/18 04:00 05/18/18 07:00 05/18/18 08:00 Temperature 98.2 F 98.2 F Pulse Rate 81 89 68 Respiratory Rate 16 24 Blood Pressure 120/66 110/64 Pulse Oximetry 93 L 94 L 05/18/18 08:40 Temperature Pulse Rate Respiratory Rate Blood Pressure Pulse Oximetry 98 Intake & Output 05/17/18 05/18/18 05/18/18 18:59 06:59 18:59 Intake Total 150 / 150 840 / 840 150 / 150 Output Total 200 / 200 Balance 150 / 150 640 / 640 150 / 150 Weight 61.2 kg Intake: IV 150 / 150 150 / 150 Levaquin 750 mg Premix Inj 150 150 / 150 150 / 150 ML @ 100 mls/hr IV.SIG Q24H [facility] Rx#:[id number] Oral 840 / 840 Output: Urine 200 / 200 Other: # Voids 3 Date of Last Bowel Movement 05/15/18 05/15/17 Narrative: GENERAL: Pleasant 77 yo female, well-nourished, well-developed, appears tired. CARDIOVASCULAR: Regular rate and rhythm. No murmur appreciated. RESPIRATORY: No accessory muscle use. Breath sounds diminished bibasilar. No wheezing. GASTROINTESTINAL: Abdomen soft, ND, + BS x4Q. Mild diffuse tenderness to palpation. MUSCULOSKELETAL: No obvious deformities. Extremities without clubbing, cyanosis , or edema. TTP at left posterior lateral upper thorax. NEURO: Awake and alert. No obvious cranial nerve deficits. Moving all extremities spontaneously. Normal speech. Results Labs CBC & Chem 7: 05/17/18 08:39 05/17/18 08:39 Labs: Microbiology 05/15/18 23:30 Clean Catch Urine Urine Culture - Final Escherichia coli Assessment and Plan (1) Congestive heart failure as early postoperative complication: Status: Acute (2) Hiatal hernia with gastroesophageal reflux: Code(s): K21.9 - Gastro-esophageal reflux disease without esophagitis; K44.9 - Diaphragmatic hernia without obstruction or gangrene Status: Acute (3) Bilateral pleural effusion: Code(s): J90 - Pleural effusion, not elsewhere classified Status: Acute (4) Acute costochondritis: Code(s): M94.0 - Chondrocostal junction syndrome [Tietze] Status: Acute (5) Urinary tract infection: Code(s): N39.0 - Urinary tract infection, site not specified Status: Acute Plan 77-year-old female with a past medical history significant for diabetes mellitus , COPD, hyperlipidemia and GERD presents to the emergency department for the evaluation of left-sided abdominal/flank pain. Healthcare Associated Pneumonia with Pleural Effusions: acute. +SOB. -CXR / concerning for pulm edema - Received IV Lasix 40mg x1 with good response. Continue lasix 40mg daily x3days -Chest CTA negative for PE, shows small bilateral pleural effusions with airspace consolidation at the lung bases -Started on antibiotics with IV Levaquin (allergies to amoxicillin and cephalosporins) -O2 as needed -Incentive spirometry, Acapella UTI: acute, UA with leuks and WBCs -Urine culture with E.coli - resistance to fluoroquinolones -Give bactrim 1 tab po bid x3days Abdominal/flank pain: possibly secondary to recent surgery vs pneumonia vs pleuritic vs musculoskeletal vs UTI -CT of the abdomen/pelvis negative for acute abnormality -Status post hiatal hernia repair on Sunday05/10/18 -Dr. Alves consulted, appreciate assistance, unlikely related to surgery EKG changes: Patient with T wave inversion in V2 through V5 which are new compared to previous -Patient denies chest pain -Trend serial cardiac enzymes, troponin 0 0.03, 0.04, 0.04 -Consulted patient's ciaio counter molder, Dr. Enrique, unlikely ACS -Echocardiogram with EF 55-60% Diabetes mellitus: chronic -Monitor Accu-Cheks and cover with sliding scale insulin Hyperlipidemia: chronic -Continue statin GERD: chronic -Continue protonix CORNELL: Creatinine 1.65, baseline unknown. Possibly secondary to recent decreased oral intake -Given IV fluid hydration, however patient developed SOB with mild pulm edema , s/p IV Lasix 40mg x1 -Renal function improving, Cr 1.23 DVT Prophylaxis: teds/SCDs; Holding pharmacologic anticoagulation until cleared by general surgery Poss DC on Sunday if continues to improve Progress Note: Quality VTE Deep Vein Thrombosis/Pulmonary Embolism Present on Admission: No _ (1) Urinary tract infection Qualifiers: Encounter type: Hematuria presence: Indwelling urinary catheter type: Urinary tract infection type:
[2018-05-19] MEDS: HYDROmorphone PF Inj 0.5 MG/0.5 ML Syringe IV.PUSH PRN (01:13)
[2018-05-19] MEDS: Insulin NovoLOG Aspart Correctional Sugar Inj SQ SCH ×5 (04:34→20:41)
[2018-05-19 06:47] LABS: Baso % (Auto) 0.5 % (0.0-2.0); Eos # (Auto) 0.2 th/mm3 (0.0-0.4); Eos % (Auto) 3.7 % (0.0-4.0); Hematocrit 32.5 % (35.0-46.0); Hemoglobin 10.9 gm/dL (11.6-15.3); Lymph # (Auto) 0.9 th/mm3 (1.0-4.8); Lymph % (Auto) 14.4 % (9.0-44.0); Mean Corpuscular HGB Conc 33.4 % (32.0-36.0); Mean Corpuscular Hemoglobin 32.2 pg (27.0-34.0); Mean Corpuscular Volume 96.3 fL (80.0-100.0); Mono # (Auto) 0.8 th/mm3 (0.0-0.9); Mono % (Auto) 12.8 % (0.0-8.0); Neut # (Auto) 4.4 th/mm3 (1.8-7.7); Neut % (Auto) 68.6 % (16.0-70.0); Platelet Count 231 th/mm3 (150-450); Red Blood Count 3.37 mil/mm3 (4.00-5.30); Red Cell Distribution Width 15.1 % (11.6-17.2); White Blood Count 6.5 th/mm3 (4.0-11.0)
[2018-05-19 07:13] LABS: Calcium 8.5 mg/dL (8.5-10.1); Carbon Dioxide 30.5 meq/L (21.0-32.0); Potassium 3.5 meq/L (3.5-5.1)
[2018-05-19] MEDS: Morphine Inj 4 MG/ML Vial IV.PUSH PRN ×3 (08:56→20:36)
[2018-05-19] MEDS: Lactobacillus Acidophilus/L. Spores Tablet PO SCH (08:58)
[2018-05-19] MEDS: Sodium Chloride 0.9% 2 ML Flush BID IV.FLUSH SCH ×2 (08:59→20:41)
[2018-05-19] MEDS: Gabapentin 300 MG Capsule PO SCH ×3 (08:59→20:36)
[2018-05-19] MEDS: Ferrous Sulfate 325 MG Tablet PO SCH (08:59)
[2018-05-19] MEDS: Senna/Docusate Sodium 8.6/50 MG Tablet PO SCH ×2 (08:59→20:35)
--- NOTE | 2018-05-19 15:56 | P.PNIM ---
Subjective Interval history: Was up in the chair today however she feels very tired. She also complains of cough encourage incentive spirometry and Acapella. Says she has some sputum production. No fever or chills. She has pain in her chest with coughing. No nausea or vomiting. Physical Exam Vital signs: Vital Signs 05/18/18 16:00 05/18/18 19:00 05/18/18 20:00 Temperature 98.7 F 98.1 F Pulse Rate 73 74 84 Respiratory Rate 16 18 Blood Pressure 109/69 138/83 Pulse Oximetry 96 98 05/18/18 23:00 05/19/18 00:00 05/19/18 03:00 Temperature 97.7 F Pulse Rate 79 98 H 96 H Respiratory Rate 20 Blood Pressure 118/75 Pulse Oximetry 05/19/18 04:00 05/19/18 04:34 05/19/18 07:00 Temperature 98.5 F Pulse Rate 77 75 Respiratory Rate 16 16 Blood Pressure 122/69 Pulse Oximetry 97 05/19/18 08:00 05/19/18 09:40 05/19/18 11:00 Temperature 98.1 F Pulse Rate 98 H 76 Respiratory Rate 18 Blood Pressure 142/66 H Pulse Oximetry 98 96 05/19/18 11:53 05/19/18 15:00 05/19/18 15:40 Temperature 99.1 F 99.6 F Pulse Rate 76 76 72 Respiratory Rate 18 22 Blood Pressure 113/80 105/50 L Pulse Oximetry 93 L 92 L Intake & Output 05/18/18 05/19/18 05/19/18 18:59 06:59 18:59 Intake Total 870 / 870 240 / 240 Output Total 1200 / 1200 800 / 800 Balance -330 / -330 -560 / -560 Weight 61.3 kg Intake: IV 150 / 150 Levaquin 750 mg Premix Inj 150 150 / 150 ML @ 100 mls/hr IV.SIG Q24H [facility] Rx#:[id number] Oral 720 / 720 240 / 240 Output: Urine 1200 / 1200 800 / 800 Other: Date of Last Bowel Movement 05/15/17 05/15/17 Narrative: GENERAL: Pleasant 77 yo female, well-nourished, well-developed, appears tired. CARDIOVASCULAR: Regular rate and rhythm. No murmur appreciated. RESPIRATORY: No accessory muscle use. Breath sounds diminished bibasilar. No wheezing. GASTROINTESTINAL: Abdomen soft, ND, + BS x4Q. Mild diffuse tenderness to palpation. MUSCULOSKELETAL: No obvious deformities. Extremities without clubbing, cyanosis , or edema. TTP at left posterior lateral upper thorax. NEURO: Awake and alert. No obvious cranial nerve deficits. Moving all extremities spontaneously. Normal speech. Results Labs CBC & Chem 7: 05/19/18 05:03 05/19/18 05:03 Assessment and Plan (1) Congestive heart failure as early postoperative complication: Status: Acute (2) Hiatal hernia with gastroesophageal reflux: Code(s): K21.9 - Gastro-esophageal reflux disease without esophagitis; K44.9 - Diaphragmatic hernia without obstruction or gangrene Status: Acute (3) Bilateral pleural effusion: Code(s): J90 - Pleural effusion, not elsewhere classified Status: Acute (4) Acute costochondritis: Code(s): M94.0 - Chondrocostal junction syndrome [Tietze] Status: Acute (5) Urinary tract infection: Code(s): N39.0 - Urinary tract infection, site not specified Status: Acute Plan 77-year-old female with a past medical history significant for diabetes mellitus , COPD, hyperlipidemia and GERD presents to the emergency department for the evaluation of left-sided abdominal/flank pain. Healthcare Associated Pneumonia with Pleural Effusions: acute. +SOB. -CXR 05/15 concerning for pulm edema - Received IV Lasix 40mg x1 with good response. Continue lasix 40mg daily x3days, however kidney function is worsening will decreased lasix to 20 mg daily -Chest CTA negative for PE, shows small bilateral pleural effusions with airspace consolidation at the lung bases -Started on antibiotics with IV Levaquin (allergies to amoxicillin and cephalosporins) -O2 as needed -Incentive spirometry, Acapella UTI: acute, UA with leuks and WBCs -Urine culture with E.coli - resistance to fluoroquinolones -Give bactrim 1 tab po bid x3days Abdominal/flank pain: possibly secondary to recent surgery vs pneumonia vs pleuritic vs musculoskeletal vs UTI -CT of the abdomen/pelvis negative for acute abnormality -Status post hiatal hernia repair on Sunday05/10/18 -Dr. 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 Enrique, unlikely ACS -Echocardiogram with EF 55-60% Diabetes mellitus: chronic -Monitor Accu-Cheks and cover with sliding scale insulin Hyperlipidemia: chronic -Continue statin GERD: chronic -Continue protonix CORNELL: Creatinine 1.65, baseline unknown. Possibly secondary to recent decreased oral intake -Given IV fluid hydration, however patient developed SOB with mild pulm edema , s/p IV Lasix 40mg x1 -Renal function improving, Cr 1.23 DVT Prophylaxis: teds/SCDs; Holding pharmacologic anticoagulation until cleared by general surgery Poss DC on Sunday if continues to improve Progress Note: Quality VTE Deep Vein Thrombosis/Pulmonary Embolism Present on Admission: No _ (1) Urinary tract infection Qualifiers: Encounter type: Hematuria presence: Indwelling urinary catheter type: Urinary tract infection type:
[2018-05-20] MEDS: Insulin NovoLOG Aspart Correctional Sugar Inj SQ SCH ×5 (04:19→20:45)
[2018-05-20] MEDS: Morphine Inj 4 MG/ML Vial IV.PUSH PRN (06:09)
[2018-05-20 08:53] LABS: Baso % (Auto) 0.7 % (0.0-2.0); Eos # (Auto) 0.3 th/mm3 (0.0-0.4); Hematocrit 30.8 % (35.0-46.0); Hemoglobin 10.1 gm/dL (11.6-15.3); Lymph # (Auto) 0.7 th/mm3 (1.0-4.8); Lymph % (Auto) 12.8 % (9.0-44.0); Mean Corpuscular HGB Conc 32.9 % (32.0-36.0); Mean Corpuscular Volume 94.2 fL (80.0-100.0); Mean Platelet Volume 7.3 fL (7.0-11.0); Mono # (Auto) 0.7 th/mm3 (0.0-0.9); Mono % (Auto) 11.5 % (0.0-8.0); Neut # (Auto) 4.1 th/mm3 (1.8-7.7); Platelet Count 229 th/mm3 (150-450); Red Blood Count 3.27 mil/mm3 (4.00-5.30); Red Cell Distribution Width 14.8 % (11.6-17.2); White Blood Count 5.8 th/mm3 (4.0-11.0)
[2018-05-20 09:23] LABS: Calcium 8.9 mg/dL (8.5-10.1); Carbon Dioxide 30.9 meq/L (21.0-32.0); Potassium 3.6 meq/L (3.5-5.1)
--- NOTE | 2018-05-20 10:10 | P.PNIM ---
Subjective Interval history: Patient is on the bedside commode says is not able to have a bowel movement feels constipated. No nausea or vomiting. She is coughing more and she is complaining of upper abdominal pain and right sided chest pain with cough. We will add muscle relaxer. No fever or chills overnight. However she feels tired and is not improved much. Will consult pulmonology and will consider repeat imaging. Physical Exam Vital signs: Vital Signs 05/19/18 11:00 05/19/18 11:53 05/19/18 15:00 Temperature 99.1 F Pulse Rate 76 76 76 Respiratory Rate 18 Blood Pressure 113/80 Pulse Oximetry 93 L 05/19/18 15:40 05/19/18 19:00 05/19/18 20:00 Temperature 99.6 F 97.9 F Pulse Rate 72 73 86 Respiratory Rate 22 20 Blood Pressure 105/50 L 128/82 Pulse Oximetry 92 L 96 05/19/18 20:57 05/19/18 23:00 05/20/18 00:00 Temperature 98.6 F Pulse Rate 74 71 71 Respiratory Rate 16 18 Blood Pressure 111/63 Pulse Oximetry 96 05/20/18 00:07 05/20/18 03:00 05/20/18 04:00 Temperature 99.0 F Pulse Rate 71 72 Respiratory Rate 18 17 Blood Pressure 105/58 L Pulse Oximetry 98 05/20/18 06:46 05/20/18 09:34 Temperature Pulse Rate 62 Respiratory Rate 18 16 Blood Pressure Pulse Oximetry 96 Intake & Output 05/19/18 05/20/18 05/20/18 18:59 06:59 18:59 Intake Total 720 / 720 540 / 540 Output Total 1000 / 1000 550 / 550 Balance -280 / -280 -10 / -10 Weight 62.4 kg Intake: Oral 720 / 720 540 / 540 Output: Urine 1000 / 1000 550 / 550 Other: Date of Last Bowel Movement 05/15/17 Narrative: GENERAL: Pleasant 77 yo female, well-nourished, well-developed, appears tired. CARDIOVASCULAR: Regular rate and rhythm. No murmur appreciated. RESPIRATORY: No accessory muscle use. Breath sounds diminished bibasilar. No wheezing. Tenderness to palpation over right lower chest . GASTROINTESTINAL: Abdomen soft, ND, + BS x4Q. Mild diffuse tenderness to palpation. MUSCULOSKELETAL: No obvious deformities. Extremities without clubbing, cyanosis , or edema. TTP at left posterior lateral upper thorax. NEURO: Awake and alert. No obvious cranial nerve deficits. Moving all extremities spontaneously. Normal speech. Results Labs CBC & Chem 7: 05/20/18 08:36 05/20/18 08:36 Assessment and Plan (1) Congestive heart failure as early postoperative complication: Status: Acute (2) Hiatal hernia with gastroesophageal reflux: Code(s): K21.9 - Gastro-esophageal reflux disease without esophagitis; K44.9 - Diaphragmatic hernia without obstruction or gangrene Status: Acute (3) Bilateral pleural effusion: Code(s): J90 - Pleural effusion, not elsewhere classified Status: Acute (4) Acute costochondritis: Code(s): M94.0 - Chondrocostal junction syndrome [Tietze] Status: Acute (5) Urinary tract infection: Code(s): N39.0 - Urinary tract infection, site not specified Status: Acute Plan 77-year-old female with a past medical history significant for diabetes mellitus , COPD, hyperlipidemia and GERD presents to the emergency department for the evaluation of left-sided abdominal/flank pain. Healthcare Associated Pneumonia with Pleural Effusions: acute. +SOB. Acute on chronic respiratory failure now requiting 4L O2 by [place] -CXR 05/15 concerning for pulm edema - Received IV Lasix 40mg x1 with good response. Continue lasix 40mg daily x3days, however kidney function is worsening will decreased lasix to 20 mg daily -Chest CTA negative for PE, shows small bilateral pleural effusions with airspace consolidation at the lung bases -Started on antibiotics with IV Levaquin (allergies to amoxicillin and cephalosporins) -O2 as needed -Incentive spirometry, Acapella -Consult pulm for eval UTI: acute, UA with leuks and WBCs -Urine culture with E.coli - resistance to fluoroquinolones -Give bactrim 1 tab po bid x3days Abdominal/flank pain: possibly secondary to recent surgery vs pneumonia vs pleuritic vs musculoskeletal vs UTI -CT of the abdomen/pelvis negative for acute abnormality -Status post hiatal hernia repair on Sunday05/10/18 -Dr. Alves consulted, appreciate assistance, unlikely related to surgery - Will add muscle relaxer EKG changes: Patient with T wave inversion in V2 through V5 which are new compared to previous -Patient denies chest pain -Trend serial cardiac enzymes, troponin 0 0.03, 0.04, 0.04 -Consulted patient's neck band operator, Dr. Enrique, unlikely ACS -Echocardiogram with EF 55-60% Diabetes mellitus: chronic -Monitor Accu-Cheks and cover with sliding scale insulin Hyperlipidemia: chronic -Continue statin GERD: chronic -Continue protonix CORNELL: Creatinine 1.65, baseline unknown. Possibly secondary to recent decreased oral intake -Given IV fluid hydration, however patient developed SOB with mild pulm edema , s/p IV Lasix 40mg x1 -Renal function improving initially, now worsening,. lasix decreased, no imprpvement in kidney fxn, will DC lasix and monitor renal function DVT Prophylaxis: teds/SCDs; Holding pharmacologic anticoagulation until cleared by general surgery DC when imprpves Consult pulm as patient is not getting better, will need repeat imaging, patient is requiring 4L by [place] Progress Note: Quality VTE Deep Vein Thrombosis/Pulmonary Embolism Present on Admission: No _ (1) Urinary tract infection Qualifiers: Encounter type: Hematuria presence: Indwelling urinary catheter type: Urinary tract infection type:
[2018-05-20] MEDS: HYDROmorphone PF Inj 0.5 MG/0.5 ML Syringe IV.PUSH PRN (10:53)
[2018-05-20] MEDS: Senna/Docusate Sodium 8.6/50 MG Tablet PO SCH ×2 (10:54→20:38)
[2018-05-20] MEDS: Lactobacillus Acidophilus/L. Spores Tablet PO SCH (10:54)
[2018-05-20] MEDS: Ferrous Sulfate 325 MG Tablet PO SCH (10:55)
[2018-05-20] MEDS: Gabapentin 300 MG Capsule PO SCH ×2 (10:55→20:38)
[2018-05-20] MEDS: Sodium Chloride 0.9% 2 ML Flush BID IV.FLUSH SCH ×2 (10:57→20:38)
--- NOTE | 2018-05-20 16:13 | P.PNGS ---
Subjective Interval history: Resting in bed Pain with deep breaths Physical Exam Vital signs: Vital Signs 05/19/18 19:00 05/19/18 20:00 05/19/18 20:57 Temperature 97.9 F Pulse Rate 73 86 74 Respiratory Rate 20 16 Blood Pressure 128/82 Pulse Oximetry 96 05/19/18 23:00 05/20/18 00:00 05/20/18 00:07 Temperature 98.6 F Pulse Rate 71 71 Respiratory Rate 18 18 Blood Pressure 111/63 Pulse Oximetry 96 05/20/18 03:00 05/20/18 04:00 05/20/18 06:46 Temperature 99.0 F Pulse Rate 71 72 Respiratory Rate 17 18 Blood Pressure 105/58 L Pulse Oximetry 98 05/20/18 09:34 05/20/18 10:37 05/20/18 12:44 Temperature 98.8 F 97.9 F Pulse Rate 62 103 H 89 Respiratory Rate 16 16 Blood Pressure 134/75 114/75 Pulse Oximetry 96 95 95 Intake & Output 05/19/18 05/20/18 05/20/18 18:59 06:59 18:59 Intake Total 720 / 720 540 / 540 Output Total 1000 / 1000 550 / 550 Balance -280 / -280 -10 -10 Weight 62.4 kg Intake: Oral 720 / 720 540 / 540 Output: Urine 1000 / 1000 550 / 550 Other: Date of Last Bowel Movement 05/15/17 Narrative: Alert and awake Resp: diminished breath sounds; LEFT greater than RIGHT; lateral posterior chest discomfort Abd: Soft; incisions sites healing well; non tender Results - Labs 05/20/18 08:36 05/20/18 08:36 Laboratory Results - last 24 hr 05/19/18 05/19/18 05/20/18 16:58 20:22 03:42 WBC RBC Hgb Hct MCV MCH MCHC RDW Plt Count MPV Neut % (Auto) Lymph % (Auto) [place] % (Auto) Eos % (Auto) Baso % (Auto) Neut # (Auto) Lymph # (Auto) [place] # (Auto) Eos # (Auto) Baso # (Auto) WBC Differential Differential Comment Sodium Potassium Chloride Carbon Dioxide Anion Gap BUN Creatinine Estimated GFR POC Glucose 137 H 141 H 130 H Random Glucose Calcium 05/20/18 05/20/18 05/20/18 07:54 08:36 08:36 WBC 5.8 RBC 3.27 L Hgb 10.1 L Hct 30.8 L MCV 94.2 MCH 31.0 MCHC 32.9 RDW 14.8 Plt Count 229 MPV 7.3 Neut % (Auto) 70.0 Lymph % (Auto) 12.8 [place] % (Auto) 11.5 H Eos % (Auto) 5.0 H Baso % (Auto) 0.7 Neut # (Auto) 4.1 Lymph # (Auto) 0.7 L [place] # (Auto) 0.7 Eos # (Auto) 0.3 Baso # (Auto) 0.0 WBC Differential . Differential Comment Auto diff final Sodium 139 Potassium 3.6 Chloride 102 Carbon Dioxide 30.9 Anion Gap 6 BUN 19 H Creatinine 1.51 H Estimated GFR 34 L POC Glucose 129 H Random Glucose 115 H Calcium 8.9 05/20/18 12:00 WBC RBC Hgb Hct MCV MCH MCHC RDW Plt Count MPV Neut % (Auto) Lymph % (Auto) [place] % (Auto) Eos % (Auto) Baso % (Auto) Neut # (Auto) Lymph # (Auto) [place] # (Auto) Eos # (Auto) Baso # (Auto) WBC Differential Differential Comment Sodium Potassium Chloride Carbon Dioxide Anion Gap BUN Creatinine Estimated GFR POC Glucose 271 H Random Glucose Calcium - Imaging Imaging: ITS Impressions Abdomen/Pelvis CT 05/15/18 22:14 CONCLUSION: 1. No acute abnormality to explain the patient's left upper quadrant pain. 2. Subcutaneous air involving the anterior abdominal wall without inflammation or fluid collection. This may relate to subcutaneous medication administration. 3. Prior cholecystectomy. 4. Small bilateral pleural effusions with passive atelectasis. Pulmonary Perfusion Imaging 05/15/18 22:14 CONCLUSION: No significant ventilation/perfusion mismatch is identified. Examination is low probability for PE. Chest X-Ray 05/16/18 10:08 CONCLUSION: Worsening CHF Chest CTA 05/17/18 00:00 CONCLUSION: 1. No CT evidence for pulmonary artery embolism as questioned. 2. Redemonstration of small bilateral pleural effusions with airspace consolidation at the lung bases. 3. Coronary artery calcifications. Assessment and Plan - Assessment (1) Congestive heart failure as early postoperative complication Status: Acute (2) Hiatal hernia with gastroesophageal reflux Code(s): K21.9 - Gastro-esophageal reflux disease without esophagitis; K44.9 - Diaphragmatic hernia without obstruction or gangrene Status: Acute (3) Bilateral pleural effusion Code(s): J90 - Pleural effusion, not elsewhere classified Status: Acute (4) Acute costochondritis Code(s): M94.0 - Chondrocostal junction syndrome [Tietze] Status: Acute Plan: 77 year old female s/p lap repair of hiatal hernia with partial fundoplication; back with shortness of breath and lateral chest wall tenderness -Continue full liquids -Pulmonology consulted; CXR pending -OOB as tolerated -Continue pain control and heating pad as necessary . (5) Urinary tract infection Code(s): N39.0 - Urinary tract infection, site not specified Status: Acute - Plan I personally evaluated the patient in room 241. The patient has been swallowing full liquid diet without difficulty. She has significantly less reflux and now than she did before her surgery. She indicates the left sided pleuritic type chest pain is decreasing in severity. She is encouraged. Her abdominal incisions from her surgery are all healing nicely been the skin glue. There is no erythema or drainage. Her extremities are nonedematous. She desires advancement to a soft diet which I will order for her. The exam, history, and the medical decision-making described in the above note were completed with the assistance of the mid-level provider. I reviewed and agree with the findings presented. I attest that I had a [id number] encounter with the patient on the same day, and personally performed and documented my assessment and findings in the medical record.
--- NOTE | 2018-05-20 17:13 | MB ---
cc: Erick Moreau MD DATE: 05/20/2018 REASON FOR CONSULTATION: Pulmonary management. REFERRING PHYSICIAN: Dr. Springer HISTORY OF PRESENT ILLNESS: The patient is a 77-year-old female with past medical history of COPD, hypertension, GERD, status post laparoscopic repair of hiatal hernia with a partial fundoplication for hiatal hernia with GERD by Dr. Alves. The patient was admitted to [facility] on 05/16/2018 under hospitalist service for left flank abdominal pain. She had a CT abdomen and pelvis which did not show any acute abnormalities. Also, it showed small bilateral pleural effusions with passive atelectasis. The patient underwent a V/Q scan on 05/15/2018 which showed low probability for pulmonary embolism. On 05/17/2018, she underwent CT angiogram of the chest which showed no evidence of pulmonary embolism. However, it showed small bilateral pleural effusions as well as with airspace consolidation at the lung bases. The patient is on 4 L oxygen with saturation of 95%-96%. She denies any use of oxygen at home. The patient reports shortness of breath with walking and occasional productive cough associated with wheezing. She was treated for pneumonia in the past. The patient quit smoking 25 years ago and has [id number] history of smoking. Echocardiogram performed, which showed an EF of 55%-60%, and the patient is being followed by Dr. Enrique, her hydraulics teacher. She was started on broad spectrum antibiotics. The patient denies any orthopnea, PND, or edema of lower extremities. She denies any nausea, vomiting, or abdominal pain. PAST MEDICAL HISTORY: Significant for COPD and GERD, hiatal hernia, diabetes mellitus, hypertension. PAST SURGICAL HISTORY: Status post recent laparoscopic repair of hiatal hernia with partial fundoplication for GERD, history of tonsillectomy, cholecystectomy, angioplasty. ALLERGIES: MULTIPLE WHICH INCLUDE ADENOSINE, AMOXICILLIN, KEFLEX, LATEX, OXYCODONE PROCAINE, PREDNISONE. THE PATIENT STATES THAT SHE GETS RASH FROM PREDNISONE; HOWEVER, SHE TOOK IV STEROIDS PREVIOUSLY. SOCIAL HISTORY: Ex-smoker, quit smoking 25 years ago. Nondrinker. FAMILY HISTORY: Diabetes mellitus runs in the family. ACTIVE MEDICATIONS: 1. Flexeril. 2. Lipitor. 3. DuoNeb. 4. Lasix. 5. Dilaudid. 6. Protonix. 7. Bactrim. REVIEW OF SYSTEMS: As per HPI. Rest of the review of systems is unremarkable. PHYSICAL EXAMINATION: GENERAL: This is a 77-year-old female lying in bed, in mild distress. VITAL SIGNS: Temperature 98.8, pulse of 89, blood pressure 114/75, saturation 95% on 3-4 L of oxygen. HEENT: Atraumatic, normocephalic. Pupils are equal, round, reactive to light with extraocular muscles intact. Conjunctivae pink. Nonicteric sclerae. Oral mucosa within normal. NECK: Supple. No JVD, adenopathy, or thyromegaly. Trachea midline. CARDIOVASCULAR: Regular rate and rhythm. Normal S1, S2. No murmurs, rubs or gallops noted. PULMONARY: Bilaterally equal air entry with a few coarse breath sounds. ABDOMEN: Soft, nontender, nondistended. Positive bowel sounds. EXTREMITIES: No cyanosis, clubbing, edema. NEUROLOGIC: No focal sensory deficit. LABORATORY DATA: WBC 5.8, hemoglobin 10, hematocrit 30, platelet count of 229. Sodium 139, potassium 3.6, chloride 106, CO2 of 30, BUN 19, creatinine 1.51, glucose of 271. IMPRESSION: 1. Respiratory insufficiency. 2. Chronic obstructive pulmonary disease. 3. History of tobacco abuse. 4. Hypertension. 5. Status post laparoscopic repair of hiatal hernia with partial fundoplication. 6. History of gastroesophageal reflux disease. 7. Diabetes mellitus. 8. Peptic ulcer disease. RECOMMENDATIONS: 1. Continue with oxygen and maintain saturations above 92%. 2. Bronchodilators in the form of DuoNeb every 4 hours plus every 2 hours p.r.n. for shortness of breath. 3. We will obtain a baseline chest x-ray. The patient had a CT angiogram of the chest on 05/17/2018 which showed no evidence of pulmonary embolism. However, it showed small bilateral effusions with atelectasis. Also, she had a V/Q scan on 05/15/2018 which showed low probability for pulmonary embolism. 4. Continue with diuretics. She is on Lasix 20 mg IV daily. 5. Continue with current antibiotics. The patient was started on Levaquin. Monitor for signs of infection, which include fever and WBC. We will obtain a sputum culture with Gram stain and will check strep pneumonia and legionella urinary antigen. 6. Incentive spirometry every 1 hour while awake. 7. We will need to assess for home oxygen prior to discharge. 8. Gastrointestinal and deep venous thrombosis prophylaxis per primary team. 9. Further recommendations will be based on hospital course. Thank you for this consultation and allowing us to participate in this patient's care.. MD PHILLIP Zimmerman/cecily , 03:42 PM , 03:54 PM
[2018-05-21] MEDS: Insulin NovoLOG Aspart Correctional Sugar Inj SQ SCH ×5 (03:18→21:54)
--- NOTE | 2018-05-21 04:42 | XR ---
EXAM DATE: 05/21/2018 4:29 AM EST AGE/SEX: 77 years / Female INDICATIONS: Shortness of breath. CLINICAL DATA: This is the patient's subsequent encounter. Patient reports that signs and symptoms h ave been present for 4 - 6 days and indicates a pain score of Nonresponsive. MEDICAL/SURGICAL HISTORY: . Chronic obstructive pulmonary disease. Congestive heart failure. Di abetes mellitus type II. Asthma. Hiatal hernia. . Hiatal hernia repair. COMPARISON: . FINDINGS: Hazy bibasilar pleural-parenchymal opacities are grossly unchanged. Cardiac contours are stable. CONCLUSION: No significant change Electronically signed by: Leonel Jaeger MD Board Certified Radiologist 05/21/2018 4:41 AM EST
[2018-05-21 07:05] LABS: Baso % (Auto) 0.6 % (0.0-2.0); Eos # (Auto) 0.2 th/mm3 (0.0-0.4); Eos % (Auto) 3.7 % (0.0-4.0); Hemoglobin 10.3 gm/dL (11.6-15.3); Lymph # (Auto) 0.7 th/mm3 (1.0-4.8); Lymph % (Auto) 10.9 % (9.0-44.0); Mean Corpuscular HGB Conc 34.3 % (32.0-36.0); Mean Corpuscular Hemoglobin 32.7 pg (27.0-34.0); Mean Corpuscular Volume 95.3 fL (80.0-100.0); Mean Platelet Volume 8.1 fL (7.0-11.0); Mono # (Auto) 0.7 th/mm3 (0.0-0.9); Mono % (Auto) 9.9 % (0.0-8.0); Neut % (Auto) 74.9 % (16.0-70.0); Platelet Count 235 th/mm3 (150-450); Red Blood Count 3.15 mil/mm3 (4.00-5.30); Red Cell Distribution Width 14.6 % (11.6-17.2); White Blood Count 6.6 th/mm3 (4.0-11.0)
[2018-05-21 07:52] LABS: Calcium 8.9 mg/dL (8.5-10.1); Carbon Dioxide 29.5 meq/L (21.0-32.0); Potassium 3.2 meq/L (3.5-5.1)
[2018-05-21] MEDS: Lactobacillus Acidophilus/L. Spores Tablet PO SCH (08:16)
[2018-05-21] MEDS: Sodium Chloride 0.9% 2 ML Flush BID IV.FLUSH SCH ×2 (08:17→20:45)
[2018-05-21] MEDS: Ferrous Sulfate 325 MG Tablet PO SCH (08:17)
[2018-05-21] MEDS: Gabapentin 300 MG Capsule PO SCH ×2 (08:17→20:44)
[2018-05-21] MEDS: Senna/Docusate Sodium 8.6/50 MG Tablet PO SCH ×2 (08:18→20:44)
--- NOTE | 2018-05-21 10:59 | P.PNPL ---
Subjective Interval history: Patient is on 3L oxygen. Afebrile. She state state she is breathing little better today. Afebrile. Physical Exam Vital signs: Vital Signs 05/20/18 11:00 05/20/18 12:44 05/20/18 15:00 Temperature 97.9 F Pulse Rate 88 89 76 Respiratory Rate Blood Pressure 114/75 Pulse Oximetry 95 05/20/18 16:00 05/20/18 16:17 05/20/18 19:57 Temperature 98.2 F Pulse Rate 69 80 81 Respiratory Rate 18 16 26 H Blood Pressure 100/58 L Pulse Oximetry 94 L 94 L 05/20/18 20:00 05/20/18 20:20 05/20/18 20:21 Temperature 98.6 F Pulse Rate 86 90 Respiratory Rate 20 Blood Pressure 120/65 Pulse Oximetry 94 L 95 05/20/18 23:30 05/20/18 23:42 05/20/18 23:45 Temperature Pulse Rate 82 82 Respiratory Rate 20 Blood Pressure Pulse Oximetry 92 L 05/21/18 00:00 05/21/18 03:47 05/21/18 03:56 Temperature 99.4 F 98.9 F Pulse Rate 87 96 H 78 Respiratory Rate 20 18 18 Blood Pressure 108/60 136/71 Pulse Oximetry 95 97 05/21/18 04:05 05/21/18 07:00 05/21/18 07:54 Temperature Pulse Rate 79 77 76 Respiratory Rate 16 Blood Pressure Pulse Oximetry 93 L 05/21/18 08:00 Temperature 97.7 F Pulse Rate 76 Respiratory Rate 12 Blood Pressure 108/49 L Pulse Oximetry 93 L Intake & Output 05/20/18 05/21/18 05/21/18 18:59 06:59 18:59 Intake Total 350 / 350 250 / 250 Output Total 800 / 800 450 / 450 Balance -450 / -450 -200 / -200 Weight 62.4 kg Intake: Oral 350 / 350 250 / 250 Output: Urine 800 / 800 450 / 450 Other: Date of Last Bowel Movement 05/20/18 05/20/17 05/20/18 # Bowel Movements 1 - Constitutional no acute distress - Routine HEENT Exam Head: Present: normocephalic, atraumatic Eye: Present: EOMI, PERRL, normal accommodation, conjunctivae pink ENT: Present: mucous membranes moist - Routine Neck Exam Present: supple, full ROM, trachea midline - Routine Respiratory Exam Present: CTA bilaterally - Routine Cardiovascular Exam Present: RRR, S1, S2 - Routine Abdominal Exam Present: soft, normoactive bowel sounds - Routine Extremities Exam Present: full ROM, pulses intact - Routine Skin Exam Present: intact, dry - Routine Neurological Exam Present: alert, oriented X3, CN II-XII intact - Routine Psychiatric Exam Present: normal affect Assessment and Plan - Plan 1. Respiratory insufficiency. 2. COPD. 3. History of tobacco abuse. 4. Hypertension. 5. S/p laparoscopic repair of hiatal hernia with partial fundoplication. 6. History of gastroesophageal reflux disease. 7. Diabetes mellitus. 8. Peptic ulcer disease. Plan Continue with oxygen and maintain saturations above 92%. Bronchodilators-DuoNeb, IS BIPAP PRN for resp distress CXR today: bibasilar pleural-parenchymal opacities are grossly unchanged CTA chest on 05/17 no PE, small bilateral effusions with atelectasis. V/Q scan on 05/15/2018 which showed low probability for pulmonary embolism. Continue Lasix 20 mg IV daily. Abx- on Levaquin. Strep pneumonia and legionella urinary antigen negative. Follow up on sputum cx Assess for home oxygen prior to discharge. Continue treatment plan
--- NOTE | 2018-05-21 13:39 | P.PNIM ---
Subjective Interval history: The patient is in the chair she appears improved today. However still with shortness of breath and feels very tired. Not coughing much. Some nausea no vomiting. Chest x-ray without improvement. Has rash on her forehead a little pruritic Physical Exam Vital signs: Vital Signs 05/20/18 15:00 05/20/18 16:00 05/20/18 16:17 Temperature 98.2 F Pulse Rate 76 69 80 Respiratory Rate 18 16 Blood Pressure 100/58 L Pulse Oximetry 94 L 05/20/18 19:57 05/20/18 20:00 05/20/18 20:20 Temperature Pulse Rate 81 86 Respiratory Rate 26 H Blood Pressure Pulse Oximetry 94 L 94 L 05/20/18 20:21 05/20/18 23:30 05/20/18 23:42 Temperature 98.6 F Pulse Rate 90 82 82 Respiratory Rate 20 20 Blood Pressure 120/65 Pulse Oximetry 95 05/20/18 23:45 05/21/18 00:00 05/21/18 03:47 Temperature 99.4 F 98.9 F Pulse Rate 87 96 H Respiratory Rate 20 18 Blood Pressure 108/60 136/71 Pulse Oximetry 92 L 95 97 05/21/18 03:56 05/21/18 04:05 05/21/18 07:00 Temperature Pulse Rate 78 79 77 Respiratory Rate 18 Blood Pressure Pulse Oximetry 05/21/18 07:54 05/21/18 08:00 05/21/18 11:00 Temperature 97.7 F Pulse Rate 76 76 78 Respiratory Rate 16 12 Blood Pressure 108/49 L Pulse Oximetry 93 L 93 L 05/21/18 12:00 05/21/18 12:40 Temperature 98.0 F Pulse Rate 76 75 Respiratory Rate 16 16 Blood Pressure 117/69 Pulse Oximetry 95 Intake & Output 05/20/18 05/21/18 05/21/18 18:59 06:59 18:59 Intake Total 350 / 350 250 / 250 Output Total 800 / 800 450 / 450 Balance -450 / -450 -200 / -200 Weight 62.4 kg Intake: Oral 350 / 350 250 / 250 Output: Urine 800 / 800 450 / 450 Other: Date of Last Bowel Movement 05/20/18 05/20/17 05/20/18 # Bowel Movements 1 Narrative: GENERAL: Pleasant 77 yo female, well-nourished, well-developed, appears tired. CARDIOVASCULAR: Regular rate and rhythm. No murmur appreciated. RESPIRATORY: No accessory muscle use. Breath sounds diminished bibasilar. No wheezing. Tenderness to palpation over right lower chest . GASTROINTESTINAL: Abdomen soft, ND, + BS x4Q. Mild diffuse tenderness to palpation. MUSCULOSKELETAL: No obvious deformities. Extremities without clubbing, cyanosis , or edema. TTP at left posterior lateral upper thorax. NEURO: Awake and alert. No obvious cranial nerve deficits. Moving all extremities spontaneously. Normal speech. SKIN: rash on forehead. Results Labs CBC & Chem 7: 05/21/18 05:12 05/21/18 05:12 Labs: Microbiology 05/21/18 03:50 Urine - Random Urine Streptococcus pneumoniae Antigen (M - Final Presumptive negative for streptococcus pneumoniae antigen, suggesting no current or recent infection. Infection due to Streptococcus pneumoniae cannot be ruled out since the antigen present in the sample may be below the detection limit of the test. 05/21/18 03:50 Urine - Random Urine Legionella Antigen - Final Presumptive negative for Legionella pneumophila serogroup 1 antigen in urine, suggesting no recent or recurrent infection. Infection due to Legionella cannot be ruled out since other serogroups and species may cause disease, antigen may not be present in urine in early infection, and the level of antigen present in the urine may be below the detection limit of the test. Imaging Imaging: Impressions Chest X-Ray 05/21/18 00:00 CONCLUSION: No significant change Assessment and Plan Plan 77-year-old female with a past medical history significant for diabetes mellitus , COPD, hyperlipidemia and GERD presents to the emergency department for the evaluation of left-sided abdominal/flank pain. Healthcare Associated Pneumonia with Pleural Effusions: acute. +SOB. Acute on chronic respiratory failure now requiting 4L O2 by [place] -CXR 05/15 concerning for pulm edema - Received IV Lasix 40mg x1 with good response. Continue lasix 40mg daily x3days, however kidney function is worsening will decreased lasix to 20 mg daily -Chest CTA negative for PE, shows small bilateral pleural effusions with airspace consolidation at the lung bases -Started on antibiotics with IV Levaquin (allergies to amoxicillin and cephalosporins) -O2 as needed -Incentive spirometry, Acapella -Repeat CXR 05/21/18 bibasilar pleural parenchymal opacities are grossly unchanged -Consult pulm for eval UTI: acute, UA with leuks and WBCs -Urine culture with E.coli - resistance to fluoroquinolones -Received bactrim 1 tab po bid x3days Abdominal/flank pain: possibly secondary to recent surgery vs pneumonia vs pleuritic vs musculoskeletal vs UTI -CT of the abdomen/pelvis negative for acute abnormality -Status post hiatal hernia repair on Sunday05/10/18 -Dr. 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 Enrique, unlikely ACS -Echocardiogram with EF 55-60% Diabetes mellitus: chronic -Monitor Accu-Cheks and cover with sliding scale insulin Hyperlipidemia: chronic -Continue statin GERD: chronic -Continue protonix CORNELL: Creatinine 1.65, baseline unknown. Possibly secondary to recent decreased oral intake -Given IV fluid hydration, however patient developed SOB with mild pulm edema , s/p IV Lasix 40mg x1 -Renal function improving initially, now worsening,. lasix decreased, no imprpvement in kidney fxn, will DC lasix and monitor renal function seborrheic dermatitis on forehead, add antifungal cream DVT Prophylaxis: teds/SCDs; Holding pharmacologic anticoagulation until cleared by general surgery DC when imprpves Consult pulm as patient is not getting better, repeat imaging, patient is requiring 3L by [place] Progress Note: Quality VTE Deep Vein Thrombosis/Pulmonary Embolism Present on Admission: No
--- NOTE | 2018-05-21 15:46 | P.PNGS ---
Subjective Interval history: Sitting on the side of the bed Pain much improved but still some discomfort with deep breaths Physical Exam Vital signs: Vital Signs 05/20/18 16:00 05/20/18 16:17 05/20/18 19:57 Temperature 98.2 F Pulse Rate 69 80 81 Respiratory Rate 18 16 26 H Blood Pressure 100/58 L Pulse Oximetry 94 L 94 L 05/20/18 20:00 05/20/18 20:20 05/20/18 20:21 Temperature 98.6 F Pulse Rate 86 90 Respiratory Rate 20 Blood Pressure 120/65 Pulse Oximetry 94 L 95 05/20/18 23:30 05/20/18 23:42 05/20/18 23:45 Temperature Pulse Rate 82 82 Respiratory Rate 20 Blood Pressure Pulse Oximetry 92 L 05/21/18 00:00 05/21/18 03:47 05/21/18 03:56 Temperature 99.4 F 98.9 F Pulse Rate 87 96 H 78 Respiratory Rate 20 18 18 Blood Pressure 108/60 136/71 Pulse Oximetry 95 97 05/21/18 04:05 05/21/18 07:00 05/21/18 07:54 Temperature Pulse Rate 79 77 76 Respiratory Rate 16 Blood Pressure Pulse Oximetry 93 L 05/21/18 08:00 05/21/18 11:00 05/21/18 12:00 Temperature 97.7 F 98.0 F Pulse Rate 76 78 76 Respiratory Rate 12 16 Blood Pressure 108/49 L 117/69 Pulse Oximetry 93 L 95 05/21/18 12:40 05/21/18 14:56 05/21/18 14:57 Temperature 97.8 F Pulse Rate 75 72 Respiratory Rate 16 16 Blood Pressure 112/63 Pulse Oximetry 95 95 Intake & Output 05/20/18 05/21/18 05/21/18 18:59 06:59 18:59 Intake Total 350 / 350 250 / 250 Output Total 800 / 800 450 / 450 Balance -450 / -450 -200 / -200 Weight 62.4 kg Intake: Oral 350 / 350 250 / 250 Output: Urine 800 / 800 450 / 450 Other: Date of Last Bowel Movement 05/20/18 05/20/17 05/20/18 # Bowel Movements 1 Narrative: Alert and awake Abd: soft; incisions sites healing with skin glue in place; LEFT lateral chest with some discomfort although improved Results - Labs 05/21/18 05:12 02/13/19 05:54 Laboratory Results - last 24 hr 05/20/18 05/20/18 05/21/18 17:47 20:43 04:00 WBC RBC Hgb Hct MCV MCH MCHC RDW Plt Count MPV Neut % (Auto) Lymph % (Auto) Isabella % (Auto) Eos % (Auto) Baso % (Auto) Neut # (Auto) Lymph # (Auto) Isabella # (Auto) Eos # (Auto) Baso # (Auto) WBC Differential Differential Comment Sodium Potassium Chloride Carbon Dioxide Anion Gap BUN Creatinine Estimated GFR POC Glucose 122 H 236 H 150 H Random Glucose Calcium 05/21/18 05/21/18 05/21/18 05:12 05:12 07:54 WBC 6.6 RBC 3.15 L Hgb 10.3 L Hct 30.0 L MCV 95.3 MCH 32.7 MCHC 34.3 RDW 14.6 Plt Count 235 MPV 8.1 Neut % (Auto) 74.9 H Lymph % (Auto) 10.9 Isabella % (Auto) 9.9 H Eos % (Auto) 3.7 Baso % (Auto) 0.6 Neut # (Auto) 5.0 Lymph # (Auto) 0.7 L Isabella # (Auto) 0.7 Eos # (Auto) 0.2 Baso # (Auto) 0.0 WBC Differential . Differential Comment Auto diff final Sodium 140 Potassium 3.2 L Chloride 102 Carbon Dioxide 29.5 Anion Gap 9 BUN 16 Creatinine 1.41 H Estimated GFR 36 L POC Glucose 137 H Random Glucose 156 H Calcium 8.9 05/21/18 11:54 WBC RBC Hgb Hct MCV MCH MCHC RDW Plt Count MPV Neut % (Auto) Lymph % (Auto) Isabella % (Auto) Eos % (Auto) Baso % (Auto) Neut # (Auto) Lymph # (Auto) Isabella # (Auto) Eos # (Auto) Baso # (Auto) WBC Differential Differential Comment Sodium Potassium Chloride Carbon Dioxide Anion Gap BUN Creatinine Estimated GFR POC Glucose 157 H Random Glucose Calcium - Imaging Imaging: ITS Impressions Abdomen/Pelvis CT 05/15/18 22:14 CONCLUSION: 1. No acute abnormality to explain the patient's left upper quadrant pain. 2. Subcutaneous air involving the anterior abdominal wall without inflammation or fluid collection. This may relate to subcutaneous medication administration. 3. Prior cholecystectomy. 4. Small bilateral pleural effusions with passive atelectasis. Pulmonary Perfusion Imaging 05/15/18 22:14 CONCLUSION: No significant ventilation/perfusion mismatch is identified. Examination is low probability for PE. Chest CTA 05/17/18 00:00 CONCLUSION: 1. No CT evidence for pulmonary artery embolism as questioned. 2. Redemonstration of small bilateral pleural effusions with airspace consolidation at the lung bases. 3. Coronary artery calcifications. Chest X-Ray 05/21/18 00:00 CONCLUSION: No significant change Assessment and Plan - Assessment (1) Congestive heart failure as early postoperative complication Status: Acute (2) Hiatal hernia with gastroesophageal reflux Code(s): K21.9 - Gastro-esophageal reflux disease without esophagitis; K44.9 - Diaphragmatic hernia without obstruction or gangrene Status: Acute Plan: The exam, history, and the medical decision-making described in the above note were completed with the assistance of the mid-level provider. I reviewed and agree with the findings presented. I attest that I had a [id number] encounter with the patient on the same day, and personally performed and documented my assessment and findings in the medical record. (3) Bilateral pleural effusion Code(s): J90 - Pleural effusion, not elsewhere classified Status: Acute (4) Acute costochondritis Code(s): M94.0 - Chondrocostal junction syndrome [Tietze] Status: Acute Plan: 77 year old female s/p lap repair of hiatal hernia with partial fundoplication; back with shortness of breath and lateral chest wall tenderness -Advance to soft diet -Pulmonology following -OOB as tolerated -Continue pain control and heating pad as necessary -No acute surgical issues . (5) Urinary tract infection Code(s): N39.0 - Urinary tract infection, site not specified Status: Acute
[2018-05-22] MEDS: Insulin NovoLOG Aspart Correctional Sugar Inj SQ SCH ×5 (04:05→22:45)
[2018-05-22 07:03] LABS: Calcium 8.7 mg/dL (8.5-10.1); Carbon Dioxide 30.9 meq/L (21.0-32.0)
[2018-05-22] MEDS: Lactobacillus Acidophilus/L. Spores Tablet PO SCH (08:38)
[2018-05-22] MEDS: Senna/Docusate Sodium 8.6/50 MG Tablet PO SCH ×2 (08:38→22:46)
[2018-05-22] MEDS: Gabapentin 300 MG Capsule PO SCH ×2 (08:39→22:46)
[2018-05-22] MEDS: Ferrous Sulfate 325 MG Tablet PO SCH (08:42)
[2018-05-22] MEDS: HYDROmorphone PF Inj 0.5 MG/0.5 ML Syringe IV.PUSH PRN ×2 (08:47→17:31)
[2018-05-22] MEDS: Sodium Chloride 0.9% 2 ML Flush BID IV.FLUSH SCH ×2 (08:48→22:46)
--- NOTE | 2018-05-22 08:54 | P.PNGS ---
Subjective Patient reports: no new complaints, still having pain (Patient feeling better every day. She has no problems with swallowing of the soft foods. No complaints of reflux. With deep breaths she still has posterior lateral left chest wall pain.) Physical Exam Vital signs: Vital Signs 05/21/18 11:00 05/21/18 12:00 05/21/18 12:40 Temperature 98.0 F Pulse Rate 78 76 75 Respiratory Rate 16 16 Blood Pressure 117/69 Pulse Oximetry 95 05/21/18 14:56 05/21/18 14:57 05/21/18 15:00 Temperature 97.8 F Pulse Rate 72 70 Respiratory Rate 16 Blood Pressure 112/63 Pulse Oximetry 95 95 05/21/18 16:06 05/21/18 19:39 05/21/18 20:00 Temperature Pulse Rate 74 80 88 Respiratory Rate 18 18 Blood Pressure Pulse Oximetry 93 L 05/21/18 20:34 05/21/18 23:58 05/22/18 00:21 Temperature 98.2 F 98.6 F Pulse Rate 79 81 77 Respiratory Rate 18 16 Blood Pressure 102/57 L 94/57 L Pulse Oximetry 92 L 94 L 05/22/18 00:29 05/22/18 03:06 05/22/18 03:58 Temperature 98.3 F Pulse Rate 86 68 97 H Respiratory Rate 17 16 16 Blood Pressure 109/64 Pulse Oximetry 95 98 05/22/18 04:14 05/22/18 07:45 05/22/18 08:00 Temperature Pulse Rate 83 74 91 H Respiratory Rate 17 18 Blood Pressure 87/55 L Pulse Oximetry 92 L 91 L Intake & Output 05/21/18 05/22/18 05/22/18 18:59 06:59 18:59 Intake Total 460 / 460 480 / 480 Output Total 1200 / 1200 1000 / 1000 Balance -740 / -740 -520 / -520 Weight 58.5 kg Intake: Oral 460 / 460 480 / 480 Output: Urine 1200 / 1200 1000 / 1000 Other: Date of Last Bowel Movement 05/20/18 05/20/18 Narrative: Her lungs are clear to auscultation. Her incision sites are healing well been a skin glue. There is no erythema or drainage. Her extremities are nonedematous. Results - Labs 05/21/18 05:12 05/22/18 05:54 Laboratory Results - last 24 hr 05/21/18 05/21/18 05/21/18 11:54 16:37 20:43 Sodium Potassium Chloride Carbon Dioxide Anion Gap BUN Creatinine Estimated GFR POC Glucose 157 H 172 H 242 H Random Glucose Calcium 05/22/18 05/22/18 03:57 05:54 Sodium 142 Potassium 3.0 L Chloride 102 Carbon Dioxide 30.9 Anion Gap 9 BUN 13 Creatinine 1.56 H Estimated GFR 32 L POC Glucose 186 H Random Glucose 144 H Calcium 8.7 - Imaging Imaging: ITS Impressions Abdomen/Pelvis CT 05/15/18 22:14 CONCLUSION: 1. No acute abnormality to explain the patient's left upper quadrant pain. 2. Subcutaneous air involving the anterior abdominal wall without inflammation or fluid collection. This may relate to subcutaneous medication administration. 3. Prior cholecystectomy. 4. Small bilateral pleural effusions with passive atelectasis. Pulmonary Perfusion Imaging 05/15/18 22:14 CONCLUSION: No significant ventilation/perfusion mismatch is identified. Examination is low probability for PE. Chest CTA 05/17/18 00:00 CONCLUSION: 1. No CT evidence for pulmonary artery embolism as questioned. 2. Redemonstration of small bilateral pleural effusions with airspace consolidation at the lung bases. 3. Coronary artery calcifications. Chest X-Ray 05/21/18 00:00 CONCLUSION: No significant change Assessment and Plan - Assessment (1) Congestive heart failure as early postoperative complication Status: Acute (2) Hiatal hernia with gastroesophageal reflux Code(s): K21.9 - Gastro-esophageal reflux disease without esophagitis; K44.9 - Diaphragmatic hernia without obstruction or gangrene Status: Acute Plan: The exam, history, and the medical decision-making described in the above note were completed with the assistance of the mid-level provider. I reviewed and agree with the findings presented. I attest that I had a [id number] encounter with the patient on the same day, and personally performed and documented my assessment and findings in the medical record. (3) Bilateral pleural effusion Code(s): J90 - Pleural effusion, not elsewhere classified Status: Acute (4) Acute costochondritis Code(s): M94.0 - Chondrocostal junction syndrome [Tietze] Status: Acute Plan: 77 year old female s/p lap repair of hiatal hernia with partial fundoplication; back with shortness of breath and lateral chest wall tenderness -Advance to soft diet -Pulmonology following -OOB as tolerated -Continue pain control and heating pad as necessary -No acute surgical issues . (5) Urinary tract infection Code(s): N39.0 - Urinary tract infection, site not specified Status: Acute - Plan I personally evaluated the patient in room 241. The patient has been swallowing full liquid diet without difficulty. She has significantly less reflux and now than she did before her surgery. She indicates the left sided pleuritic type chest pain is decreasing in severity. She is encouraged. Her abdominal incisions from her surgery are all healing nicely been the skin glue. There is no erythema or drainage. Her extremities are nonedematous. She desires advancement to a soft diet which I will order for her. The exam, history, and the medical decision-making described in the above note were completed with the assistance of the mid-level provider. I reviewed and agree with the findings presented. I attest that I had a [id number] encounter with the patient on the same day, and personally performed and documented my assessment and findings in the medical record. 05/22/2018 Personally evaluated the patient in room 241. She is postop laparoscopic repair large hiatal hernia with partial fundoplication and use of bioabsorbable mesh. She postoperatively suffered from about postop day 5 left-sided chest wall pain with deep inspiration. She has been evaluated for DVT and pulmonary embolus and aortic insufficiencies and the workup has been negative. Small bilateral pleural effusions which is not unexpected after her surgery. Her clinical exam was consistent with costochondritis. She is gradually improving. She is no evidence of recurrent hiatal hernia or acid reflux type symptoms. As her pain becomes well controlled with oral pain medication she could be discharged home. I would like to see her in follow-up in a couple of weeks after discharge. I discussed the plan in detail with the patient as well as her bedside nurse.
--- NOTE | 2018-05-22 09:29 | P.PNPL ---
Subjective Interval history: Patient is on 2L oxygen. BP borderline low this morning 87/55 with MAP 65mmHg. Afebrile. Physical Exam Vital signs: Vital Signs 05/21/18 11:00 05/21/18 12:00 05/21/18 12:40 Temperature 98.0 F Pulse Rate 78 76 75 Respiratory Rate 16 16 Blood Pressure 117/69 Pulse Oximetry 95 05/21/18 14:56 05/21/18 14:57 05/21/18 15:00 Temperature 97.8 F Pulse Rate 72 70 Respiratory Rate 16 Blood Pressure 112/63 Pulse Oximetry 95 95 05/21/18 16:06 05/21/18 19:39 05/21/18 20:00 Temperature Pulse Rate 74 80 88 Respiratory Rate 18 18 Blood Pressure Pulse Oximetry 93 L 05/21/18 20:34 05/21/18 23:58 05/22/18 00:21 Temperature 98.2 F 98.6 F Pulse Rate 79 81 77 Respiratory Rate 18 16 Blood Pressure 102/57 L 94/57 L Pulse Oximetry 92 L 94 L 05/22/18 00:29 05/22/18 03:06 05/22/18 03:58 Temperature 98.3 F Pulse Rate 86 68 97 H Respiratory Rate 17 16 16 Blood Pressure 109/64 Pulse Oximetry 95 98 05/22/18 04:14 05/22/18 07:45 05/22/18 08:00 Temperature Pulse Rate 83 74 91 H Respiratory Rate 17 18 Blood Pressure 87/55 L Pulse Oximetry 92 L 91 L Intake & Output 05/21/18 05/22/18 05/22/18 18:59 06:59 18:59 Intake Total 460 / 460 480 / 480 150 / 150 Output Total 1200 / 1200 1000 / 1000 Balance -740 / -740 -520 / -520 150 / 150 Weight 58.5 kg Intake: IV 150 / 150 Levaquin 750 mg Premix Inj 150 150 / 150 ML @ 100 mls/hr IV.SIG Q48H [facility] Rx#:[id number] Oral 460 / 460 480 / 480 Output: Urine 1200 / 1200 1000 / 1000 Other: Date of Last Bowel Movement 05/20/18 05/20/18 - Constitutional no acute distress - Routine HEENT Exam Head: Present: normocephalic, atraumatic Eye: Present: EOMI, PERRL, normal accommodation, conjunctivae pink ENT: Present: mucous membranes moist - Routine Neck Exam Present: supple, full ROM, trachea midline - Routine Respiratory Exam Present: CTA bilaterally - Routine Cardiovascular Exam Present: RRR, S1, S2 - Routine Abdominal Exam Present: soft, normoactive bowel sounds - Routine Extremities Exam Present: full ROM, pulses intact - Routine Skin Exam Present: intact - Routine Neurological Exam Present: alert, oriented X3, CN II-XII intact - Routine Psychiatric Exam Present: normal affect Assessment and Plan - Plan 1. Respiratory insufficiency. 2. COPD. 3. History of tobacco abuse. 4. Hypertension. 5. S/p laparoscopic repair of hiatal hernia with partial fundoplication. 6. History of gastroesophageal reflux disease. 7. Diabetes mellitus. 8. Peptic ulcer disease. 9. UTI 10. CORNELL Plan Continue with oxygen and maintain saturations above 92%. Bronchodilators-DuoNeb, IS BIPAP PRN for resp distress CXR 05/21: bibasilar pleural-parenchymal opacities are grossly unchanged CTA chest on 05/17 no PE, small bilateral effusions with atelectasis. V/Q scan on 05/15 showed low probability for pulmonary embolism. Hold Lasix, give NS 250ml IV x1, check Lactic acid Abx- on Levaquin. Strep pneumonia and legionella urinary antigen negative. Follow up on sputum cx Assess for home oxygen prior to discharge. Continue treatment plan
[2018-05-22 11:46] LABS: Baso % (Auto) 0.6 % (0.0-2.0); Eos # (Auto) 0.4 th/mm3 (0.0-0.4); Eos % (Auto) 6.5 % (0.0-4.0); Hematocrit 31.3 % (35.0-46.0); Hemoglobin 10.7 gm/dL (11.6-15.3); Lymph # (Auto) 0.8 th/mm3 (1.0-4.8); Lymph % (Auto) 11.9 % (9.0-44.0); Mean Corpuscular HGB Conc 34.1 % (32.0-36.0); Mean Corpuscular Hemoglobin 32.5 pg (27.0-34.0); Mean Corpuscular Volume 95.2 fL (80.0-100.0); Mean Platelet Volume 7.5 fL (7.0-11.0); Mono # (Auto) 0.6 th/mm3 (0.0-0.9); Mono % (Auto) 9.1 % (0.0-8.0); Neut # (Auto) 4.5 th/mm3 (1.8-7.7); Neut % (Auto) 71.9 % (16.0-70.0); Platelet Count 257 th/mm3 (150-450); Red Blood Count 3.29 mil/mm3 (4.00-5.30); Red Cell Distribution Width 14.9 % (11.6-17.2); White Blood Count 6.3 th/mm3 (4.0-11.0)
[2018-05-22] MEDS ORDERED: Sodium Chlor 0.9% Inj 500 ML IV.SIG SCH (12:00)
--- NOTE | 2018-05-22 12:40 | P.PNIM ---
Subjective Interval history: The patient is in bed sleeping feels tired. She was noted with low blood pressure in the morning receive IV fluids. Lasix discontinued. Patient still with some pain however is better controlled by medications and says pain was more severe in the morning. No nausea or vomiting. Not eating much. Some cough. No fever or chills overnight. No wheezing. Rash on her face is improving. Physical Exam Vital signs: Vital Signs 05/21/18 12:40 05/21/18 14:56 05/21/18 14:57 Temperature 97.8 F Pulse Rate 75 72 Respiratory Rate 16 16 Blood Pressure 112/63 Pulse Oximetry 95 95 05/21/18 15:00 05/21/18 16:06 05/21/18 19:39 Temperature Pulse Rate 70 74 80 Respiratory Rate 18 18 Blood Pressure Pulse Oximetry 93 L 05/21/18 20:00 05/21/18 20:34 05/21/18 23:58 Temperature 98.2 F Pulse Rate 88 79 81 Respiratory Rate 18 Blood Pressure 102/57 L Pulse Oximetry 92 L 05/22/18 00:21 05/22/18 00:29 05/22/18 03:06 Temperature 98.6 F Pulse Rate 77 86 68 Respiratory Rate 16 17 16 Blood Pressure 94/57 L Pulse Oximetry 94 L 95 05/22/18 03:58 05/22/18 04:14 05/22/18 07:00 Temperature 98.3 F Pulse Rate 97 H 83 81 Respiratory Rate 16 Blood Pressure 109/64 Pulse Oximetry 98 05/22/18 07:45 05/22/18 08:00 05/22/18 11:42 Temperature 98.9 F Pulse Rate 74 91 H 86 Respiratory Rate 17 18 18 Blood Pressure 87/55 L 116/77 Pulse Oximetry 92 L 91 L 94 L 05/22/18 11:43 Temperature Pulse Rate 76 Respiratory Rate 16 Blood Pressure Pulse Oximetry Intake & Output 05/21/18 05/22/18 05/22/18 18:59 06:59 18:59 Intake Total 460 / 460 480 / 480 550 / 550 Output Total 1200 / 1200 1000 / 1000 Balance -740 / -740 -520 / -520 550 / 550 Weight 58.5 kg Intake: IV 550 / 550 Levaquin 750 mg Premix Inj 150 300 / 300 ML @ 100 mls/hr IV.SIG Q48H [facility] Rx#:[id number] NS Inj 500 ML @ 1000 mls/hr IV. 250 / 250 SIG BOLUS [facility] Rx#:[id number] Oral 460 / 460 480 / 480 Output: Urine 1200 / 1200 1000 / 1000 Other: Date of Last Bowel Movement 05/20/18 05/20/18 Narrative: GENERAL: Pleasant 77 yo female, well-nourished, well-developed, appears tired. CARDIOVASCULAR: Regular rate and rhythm. No murmur appreciated. RESPIRATORY: No accessory muscle use. Breath sounds diminished bibasilar. No wheezing. Tenderness to palpation over right lower chest . GASTROINTESTINAL: Abdomen soft, ND, + BS x4Q. Mild diffuse tenderness to palpation. MUSCULOSKELETAL: No obvious deformities. Extremities without clubbing, cyanosis , or edema. TTP at left posterior lateral upper thorax. NEURO: Awake and alert. No obvious cranial nerve deficits. Moving all extremities spontaneously. Normal speech. SKIN: rash on forehead improving. Results Labs CBC & Chem 7: 05/22/18 11:29 05/22/18 05:54 Labs: Microbiology 05/21/18 08:00 Sputum - Expectorated Sputum Gram Stain - Final 05/21/18 08:00 Sputum - Expectorated Sputum Sputum Culture - Preliminary Heavy growth normal respiratory moshe at 24 hours 05/21/18 03:50 Urine - Random Urine Streptococcus pneumoniae Antigen (M - Final Presumptive negative for streptococcus pneumoniae antigen, suggesting no current or recent infection. Infection due to Streptococcus pneumoniae cannot be ruled out since the antigen present in the sample may be below the detection limit of the test. 05/21/18 03:50 Urine - Random Urine Legionella Antigen - Final Presumptive negative for Legionella pneumophila serogroup 1 antigen in urine, suggesting no recent or recurrent infection. Infection due to Legionella cannot be ruled out since other serogroups and species may cause disease, antigen may not be present in urine in early infection, and the level of antigen present in the urine may be below the detection limit of the test. Assessment and Plan (1) Congestive heart failure as early postoperative complication: Status: Acute (2) Hiatal hernia with gastroesophageal reflux: Code(s): K21.9 - Gastro-esophageal reflux disease without esophagitis; K44.9 - Diaphragmatic hernia without obstruction or gangrene Status: Acute (3) Bilateral pleural effusion: Code(s): J90 - Pleural effusion, not elsewhere classified Status: Acute (4) Acute costochondritis: Code(s): M94.0 - Chondrocostal junction syndrome [Tietze] Status: Acute (5) Urinary tract infection: Code(s): N39.0 - Urinary tract infection, site not specified Status: Acute Plan 77-year-old female with a past medical history significant for diabetes mellitus , COPD, hyperlipidemia and GERD presents to the emergency department for the evaluation of left-sided abdominal/flank pain. Healthcare Associated Pneumonia with Pleural Effusions: acute. +SOB. Acute on chronic respiratory failure now requiting 4L O2 by [place] -CXR 05/15 concerning for pulm edema - Received IV Lasix 40mg x1 with good response. Continue lasix 40mg daily x3days, however kidney function is worsening will decreased lasix to 20 mg daily. Discontinue Lasix as noted hypotensive -Chest CTA negative for PE, shows small bilateral pleural effusions with airspace consolidation at the lung bases -Started on antibiotics with IV Levaquin (allergies to amoxicillin and cephalosporins) -O2 as needed -Incentive spirometry, Acapella -Repeat CXR 05/21/18 bibasilar pleural parenchymal opacities are grossly unchanged -Consult pulm for eval Hypotension. Discontinue Lasix. Received IV fluids better blood pressure on repeat UTI: acute, UA with leuks and WBCs -Urine culture with E.coli - resistance to fluoroquinolones -Received bactrim 1 tab po bid x3days Abdominal/flank pain: possibly secondary to recent surgery vs pneumonia vs pleuritic vs musculoskeletal vs UTI -CT of the abdomen/pelvis negative for acute abnormality -Status post hiatal hernia repair on Sunday05/10/18 -Dr. Alves consulted, appreciate assistance, unlikely related to surgery - Will add muscle relaxer EKG changes: Patient with T wave inversion in V2 through V5 which are new compared to previous -Patient denies chest pain -Trend serial cardiac enzymes, troponin 0 0.03, 0.04, 0.04 -Consulted patient's customer management specialist, Dr. Enrique, unlikely ACS -Echocardiogram with EF 55-60% Diabetes mellitus: chronic -Monitor Accu-Cheks and cover with sliding scale insulin Hyperlipidemia: chronic -Continue statin GERD: chronic -Continue protonix CORNELL: Creatinine 1.65, baseline unknown. Possibly secondary to recent decreased oral intake -Given IV fluid hydration, however patient developed SOB with mild pulm edema , s/p IV Lasix 40mg x1 -Renal function improving initially, now worsening,. lasix decreased, no imprpvement in kidney fxn, will DC lasix and monitor renal function seborrheic dermatitis on forehead, add antifungal cream DVT Prophylaxis: teds/SCDs; Holding pharmacologic anticoagulation until cleared by general surgery DC when imprpves Consult pulm as patient is not getting better, repeat imaging, patient is requiring 3L by [place] Discussed with the patient, nurse pulmonology to Dr. Berger Progress Note: Quality VTE Deep Vein Thrombosis/Pulmonary Embolism Present on Admission: No _ (1) Urinary tract infection Qualifiers: Urinary tract infection type: Hematuria presence: Indwelling urinary catheter type: Encounter type:
[2018-05-22] MEDS: Morphine Inj 4 MG/ML Vial IV.PUSH PRN (22:55)
[2018-05-23] MEDS: Insulin NovoLOG Aspart Correctional Sugar Inj SQ SCH ×5 (04:51→21:20)
[2018-05-23 06:27] LABS: Calcium 8.3 mg/dL (8.5-10.1); Carbon Dioxide 30.4 meq/L (21.0-32.0); Potassium 3.6 meq/L (3.5-5.1)
[2018-05-23] MEDS: Senna/Docusate Sodium 8.6/50 MG Tablet PO SCH ×2 (08:52→21:20)
[2018-05-23] MEDS: Lactobacillus Acidophilus/L. Spores Tablet PO SCH (08:53)
[2018-05-23] MEDS: Gabapentin 300 MG Capsule PO SCH ×2 (08:53→21:20)
[2018-05-23] MEDS: Ferrous Sulfate 325 MG Tablet PO SCH (08:53)
[2018-05-23] MEDS: Sodium Chloride 0.9% 2 ML Flush BID IV.FLUSH SCH ×2 (08:53→21:20)
--- NOTE | 2018-05-23 09:57 | P.PNPL ---
Subjective Interval history: Patient is on 3L oxygen, looks comfortable, BP is better given NS 250ml bolus x1 yesterday. Afebrile. Physical Exam Vital signs: Vital Signs 05/22/18 11:00 05/22/18 11:42 05/22/18 11:43 Temperature 98.9 F Pulse Rate 82 86 76 Respiratory Rate 18 16 Blood Pressure 116/77 Pulse Oximetry 94 L 05/22/18 15:00 05/22/18 16:00 05/22/18 16:17 Temperature 97.9 F Pulse Rate 82 81 73 Respiratory Rate 14 17 Blood Pressure 97/56 L Pulse Oximetry 92 L 05/22/18 19:00 05/22/18 20:00 05/22/18 20:18 Temperature 98.1 F Pulse Rate 89 91 H 80 Respiratory Rate 18 16 Blood Pressure 93/67 L Pulse Oximetry 92 L 05/22/18 23:00 05/22/18 23:42 05/23/18 00:00 Temperature 98.1 F Pulse Rate 90 84 80 Respiratory Rate 18 16 Blood Pressure 101/65 Pulse Oximetry 93 L 05/23/18 03:00 05/23/18 03:44 05/23/18 04:00 Temperature 98.5 F Pulse Rate 86 78 85 Respiratory Rate 18 16 Blood Pressure 100/57 L Pulse Oximetry 90 L 05/23/18 04:50 05/23/18 08:08 05/23/18 08:49 Temperature 98.4 F Pulse Rate 76 95 H Respiratory Rate 16 18 18 Blood Pressure 105/67 Pulse Oximetry 94 L 94 L Intake & Output 05/22/18 05/23/18 05/23/18 18:59 06:59 18:59 Intake Total 1350 / 1350 960 / 960 Output Total 700 / 700 600 / 600 Balance 650 / 650 360 / 360 Weight 58.3 kg Intake: IV 550 / 550 Levaquin 750 mg Premix Inj 150 300 / 300 ML @ 100 mls/hr IV.SIG Q48H [facility] Rx#:[id number] NS Inj 500 ML @ 1000 mls/hr IV. 250 / 250 SIG BOLUS [facility] Rx#:[id number] Oral 800 / 800 960 / 960 Output: Urine 700 / 700 600 / 600 Other: Date of Last Bowel Movement 05/20/18 05/20/18 - Constitutional no acute distress, average body habitus - Routine HEENT Exam Head: Present: normocephalic, atraumatic Eye: Present: EOMI, PERRL, normal accommodation, conjunctivae pink ENT: Present: mucous membranes moist - Routine Neck Exam Present: supple, full ROM, trachea midline - Routine Respiratory Exam Present: CTA bilaterally - Routine Cardiovascular Exam Present: RRR, S1, S2 - Routine Abdominal Exam Present: soft, normoactive bowel sounds - Routine Extremities Exam Present: full ROM, pulses intact - Routine Skin Exam Present: intact - Routine Neurological Exam Present: alert, oriented X3, CN II-XII intact - Routine Psychiatric Exam Present: normal affect Assessment and Plan - Plan 1. Respiratory insufficiency. 2. COPD. 3. History of tobacco abuse. 4. Hypertension. 5. S/p laparoscopic repair of hiatal hernia with partial fundoplication. 6. History of gastroesophageal reflux disease. 7. Diabetes mellitus. 8. Peptic ulcer disease. 9. UTI 10. CORNELL Plan Continue with oxygen and maintain sats> 92%. Bronchodilators-DuoNeb, IS BIPAP PRN for resp distress CXR 05/21: bibasilar pleural-parenchymal opacities are grossly unchanged CTA chest on 05/17 no PE, small bilateral effusions with atelectasis. V/Q scan on 05/15 showed low probability for pulmonary embolism. Monitor BP keep MAP>65mmHg. Lactic acid 1.7 Abx- on Levaquin. Strep pneumonia and legionella urinary antigen negative. sputum cx- normal resp moshe Assess for home oxygen prior to discharge. Continue treatment plan
--- NOTE | 2018-05-23 10:07 | P.PNIM ---
Subjective Interval history: Patient is in bed she appears improved today. Less shortness of breath however still requiring oxygen, will do oxygen walk test to evaluate for need of oxygen at home most likely patient will need oxygen at home. With some cough improving. Still some pain at the surgical site. No nausea or vomiting able to tolerate food. Had a bowel movement. Rash on the face is improving. Physical Exam Vital signs: Vital Signs 05/22/18 11:00 05/22/18 11:42 05/22/18 11:43 Temperature 98.9 F Pulse Rate 82 86 76 Respiratory Rate 18 16 Blood Pressure 116/77 Pulse Oximetry 94 L 05/22/18 15:00 05/22/18 16:00 05/22/18 16:17 Temperature 97.9 F Pulse Rate 82 81 73 Respiratory Rate 14 17 Blood Pressure 97/56 L Pulse Oximetry 92 L 05/22/18 19:00 05/22/18 20:00 05/22/18 20:18 Temperature 98.1 F Pulse Rate 89 91 H 80 Respiratory Rate 18 16 Blood Pressure 93/67 L Pulse Oximetry 92 L 05/22/18 23:00 05/22/18 23:42 05/23/18 00:00 Temperature 98.1 F Pulse Rate 90 84 80 Respiratory Rate 18 16 Blood Pressure 101/65 Pulse Oximetry 93 L 05/23/18 03:00 05/23/18 03:44 05/23/18 04:00 Temperature 98.5 F Pulse Rate 86 78 85 Respiratory Rate 18 16 Blood Pressure 100/57 L Pulse Oximetry 90 L 05/23/18 04:50 05/23/18 08:08 05/23/18 08:49 Temperature 98.4 F Pulse Rate 76 95 H Respiratory Rate 16 18 18 Blood Pressure 105/67 Pulse Oximetry 94 L 94 L Intake & Output 05/22/18 05/23/18 05/23/18 18:59 06:59 18:59 Intake Total 1350 / 1350 960 / 960 Output Total 700 / 700 600 / 600 Balance 650 / 650 360 / 360 Weight 58.3 kg Intake: IV 550 / 550 Levaquin 750 mg Premix Inj 150 300 / 300 ML @ 100 mls/hr IV.SIG Q48H [facility] Rx#:[id number] NS Inj 500 ML @ 1000 mls/hr IV. 250 / 250 SIG BOLUS [facility] Rx#:[id number] Oral 800 / 800 960 / 960 Output: Urine 700 / 700 600 / 600 Other: Date of Last Bowel Movement 05/20/18 05/20/18 Narrative: GENERAL: Pleasant 77 yo female, well-nourished, well-developed, appears tired. CARDIOVASCULAR: Regular rate and rhythm. No murmur appreciated. RESPIRATORY: No accessory muscle use. Breath sounds diminished bibasilar. No wheezing. Tenderness to palpation over right lower chest . GASTROINTESTINAL: Abdomen soft, ND, + BS x4Q. Mild diffuse tenderness to palpation. MUSCULOSKELETAL: No obvious deformities. Extremities without clubbing, cyanosis , or edema. TTP at left posterior lateral upper thorax. NEURO: Awake and alert. No obvious cranial nerve deficits. Moving all extremities spontaneously. Normal speech. SKIN: rash on forehead improving. Results Labs CBC & Chem 7: 05/22/18 11:29 05/23/18 05:27 Labs: Microbiology 05/21/18 08:00 Sputum - Expectorated Sputum Gram Stain - Final 05/21/18 08:00 Sputum - Expectorated Sputum Sputum Culture - Preliminary Heavy growth normal respiratory moshe at 24 hours Assessment and Plan (1) Congestive heart failure as early postoperative complication: Status: Acute (2) Hiatal hernia with gastroesophageal reflux: Code(s): K21.9 - Gastro-esophageal reflux disease without esophagitis; K44.9 - Diaphragmatic hernia without obstruction or gangrene Status: Acute (3) Bilateral pleural effusion: Code(s): J90 - Pleural effusion, not elsewhere classified Status: Acute (4) Acute costochondritis: Code(s): M94.0 - Chondrocostal junction syndrome [Tietze] Status: Acute (5) Urinary tract infection: Code(s): N39.0 - Urinary tract infection, site not specified Status: Acute Plan 77-year-old female with a past medical history significant for diabetes mellitus , COPD, hyperlipidemia and GERD presents to the emergency department for the evaluation of left-sided abdominal/flank pain. Healthcare Associated Pneumonia with Pleural Effusions: acute. +SOB. Acute on chronic respiratory failure now requiting 4L O2 by [place] -CXR 05/15 concerning for pulm edema - Received IV Lasix 40mg x1 with good response. Continue lasix 40mg daily x3days, however kidney function is worsening will decreased lasix to 20 mg daily. Discontinue Lasix as noted hypotensive -Chest CTA negative for PE, shows small bilateral pleural effusions with airspace consolidation at the lung bases -Started on antibiotics with IV Levaquin (allergies to amoxicillin and cephalosporins) -O2 as needed -Incentive spirometry, Acapella -Repeat CXR 05/21/18 bibasilar pleural parenchymal opacities are grossly unchanged -Consult pulm for eval , appreciate recs Hypotension. Discontinue Lasix. Received IV fluids 250 cc bolus 05/22 , better blood pressure on repeat. Monitor BP UTI: acute, UA with leuks and WBCs -Urine culture with E.coli - resistance to fluoroquinolones -Received bactrim 1 tab po bid x3days Abdominal/flank pain: possibly secondary to recent surgery vs pneumonia vs pleuritic vs musculoskeletal vs UTI -CT of the abdomen/pelvis negative for acute abnormality -Status post hiatal hernia repair on Sunday05/10/18 -Dr. Alves consulted, appreciate assistance, unlikely related to surgery - Will add muscle relaxer EKG changes: Patient with T wave inversion in V2 through V5 which are new compared to previous -Patient denies chest pain -Trend serial cardiac enzymes, troponin 0 0.03, 0.04, 0.04 -Consulted patient's pneumatic drum sander, Dr. Enrique, unlikely ACS -Echocardiogram with EF 55-60% Diabetes mellitus: chronic -Monitor Accu-Cheks and cover with sliding scale insulin Hyperlipidemia: chronic -Continue statin GERD: chronic -Continue protonix CORNELL: Creatinine 1.65, baseline unknown. Possibly secondary to recent decreased oral intake -Given IV fluid hydration, however patient developed SOB with mild pulm edema , s/p IV Lasix 40mg x1 -Renal function improving initially, now worsening,. lasix decreased, no imprpvement in kidney fxn, will DC lasix and monitor renal function seborrheic dermatitis on forehead, add antifungal cream DVT Prophylaxis: teds/SCDs; Holding pharmacologic anticoagulation until cleared by general surgery DC when imprpves Consult pulm as patient is not getting better, repeat imaging, patient is requiring 3L by [place] Discussed with the patient, nurse Poss DC tomorrow if improves and BP stays stable Plan to DC home with home health Oxygen walking test most likely patient will need oxygen at home. Discussed with the patient, nurse, case management Progress Note: Quality VTE Deep Vein Thrombosis/Pulmonary Embolism Present on Admission: No _ (1) Urinary tract infection Qualifiers: Encounter type: Hematuria presence: Indwelling urinary catheter type: Urinary tract infection type:
--- NOTE | 2018-05-23 16:01 | P.DCO ---
Diagnosis (1) Congestive heart failure as early postoperative complication: Status: Acute (2) Hiatal hernia with gastroesophageal reflux: Status: Acute (3) Bilateral pleural effusion: Status: Acute (4) Acute costochondritis: Status: Acute (5) Urinary tract infection: Status: Acute Physical Therapy Order: Evaluate and treat Home Health Nursing Order: Medical education, Signs/symptoms of disease process, CHF education, Oxygen administration education, Medication education-adverse effect, Nursing assessment with vital signs and Telehealth Case Management Consult Case Management Consult-Home Health: Yes I have seen patient Rin [place] on 05/23/18. My clinical findings support the need for the requested home health care services because: Limited mobility due to disease progression and Patient has SOB I certify that my clinical findings support that this patient is homebound because: Post-op weakness and Unsteady gait/balance _ (1) Urinary tract infection Qualifiers: Urinary tract infection type: Hematuria presence: Indwelling urinary catheter type: Encounter type:
--- NOTE | 2018-05-23 16:07 | P.DS ---
DS: Providers Date of admission: 05/16/18 18:54 Primary care physician: UNKNOWN Consults: 05/16/18 04:07 Consult to General Surgery Routine Consulting Provider: Eric Alves Patient known to:: Eric Alves Reason for Consultation: patient post-op diaphragmatic repair with severe abdominal pain Notified:: Service Spoke with:: LOIS Date Notified:: 05/16/18 Time Notified:: 04:28 Ordering Provider: NEERAJ 05/16/18 11:14 Consult to Cardiology Routine Consulting Provider: Eric Enrique Does the patient have a Product Development Director who follows them?: Yes Preferred Electrocardiographic Technician:: Eric Enrique Reason for Consultation: Congestive heart failure, bilateral pleural effusions, Dr. Enrique already notified Notified:: Service Spoke with:: bonifacio Date Notified:: 05/16/18 Time Notified:: 12:03 Ordering Provider: LARY 05/20/18 12:48 Consult to Pulmonology Routine Consulting Provider: Erick Moreau Reason for Consultation: respiratory failure, pleural effusions , worsening Notified:: Service Spoke with:: Linn Date Notified:: 05/20/18 Time Notified:: 13:26 Ordering Provider: VIDAL DS: Diagnosis Discharge Diagnosis (1) Congestive heart failure as early postoperative complication: Status: Acute (2) Hiatal hernia with gastroesophageal reflux: Status: Acute (3) Bilateral pleural effusion: Status: Acute (4) Acute costochondritis: Status: Acute (5) Urinary tract infection: Status: Acute DS: Summary 77-year-old female with a past medical history significant for diabetes mellitus , COPD, hyperlipidemia and GERD presents to the emergency department for the evaluation of left-sided abdominal/flank pain. Healthcare Associated Pneumonia with Pleural Effusions: acute. +SOB. Acute on chronic respiratory failure requiting 2- 4L O2 by [place]. Failed O2 walking and needs 2L O2 aT dc, ORDERED, ARRANGEMENTS DONE BY CM -CXR 05/15 concerning for pulm edema - Received IV Lasix 40mg x1 with good response. Continue lasix 40mg daily x3days, however kidney function is worsening will decreased lasix to 20 mg daily. Discontinue Lasix as noted hypotensive -Chest CTA negative for PE, shows small bilateral pleural effusions with airspace consolidation at the lung bases -Started on antibiotics with IV Levaquin (allergies to amoxicillin and cephalosporins), Switch to PO at DC. -O2 as needed -Incentive spirometry, Acapella -Repeat CXR 05/21/18 bibasilar pleural parenchymal opacities are grossly unchanged -Consult pulm for eval , appreciate recs Hypotension. Discontinue Lasix. Received IV fluids 250 cc bolus 05/22 , better blood pressure on repeat. Monitor BP UTI: acute, UA with leuks and WBCs -Urine culture with E.coli - resistance to fluoroquinolones -Received bactrim 1 tab po bid x3days Abdominal/flank pain: possibly secondary to recent surgery vs pneumonia vs pleuritic vs musculoskeletal vs UTI -CT of the abdomen/pelvis negative for acute abnormality -Status post hiatal hernia repair on Sunday05/10/18 -Dr. Alves consulted, appreciate assistance, unlikely related to surgery - Will add muscle relaxer EKG changes: Patient with T wave inversion in V2 through V5 which are new compared to previous -Patient denies chest pain -Trend serial cardiac enzymes, troponin 0 0.03, 0.04, 0.04 -Consulted patient's top precipitator operator, Dr. Enrique, unlikely ACS -Echocardiogram with EF 55-60% Diabetes mellitus: chronic -Monitor Accu-Cheks and cover with sliding scale insulin Hyperlipidemia: chronic -Continue statin GERD: chronic -Continue protonix CORNELL: Creatinine 1.65, baseline unknown. Possibly secondary to recent decreased oral intake -Given IV fluid hydration, however patient developed SOB with mild pulm edema , s/p IV Lasix 40mg x1 -Renal function improving initially, now worsening,. lasix decreased, no imprpvement in kidney fxn, will DC lasix and monitor renal function seborrheic dermatitis on forehead, antifungal cream imprpved DVT Prophylaxis: teds/SCDs; Holding pharmacologic anticoagulation until cleared by general surgery DC when imprpves Consulted pulm as patient was not getting better, repeat imaging no change, patient is requiring 2L by [place] at the time of DC Discussed with the patient, nurse Oxygen walking test failed patient needs O2 at home, ordered. To follow up as OP with PCP, cardio, pulm and gen surg Time Spent with Patient Total time spent providing and/or coordinating discharge services: > 30 min Quality: VTE Deep Vein Thrombosis/Pulmonary Embolism Present on Admission: No Exam Narrative Exam Narrative: GENERAL: Pleasant 77 yo female, well-nourished, well-developed , appears tired. CARDIOVASCULAR: Regular rate and rhythm. No murmur appreciated. RESPIRATORY: No accessory muscle use. Breath sounds diminished bibasilar. No wheezing. Tenderness to palpation over right lower chest . GASTROINTESTINAL: Abdomen soft, ND, + BS x4Q. Mild diffuse tenderness to palpation. MUSCULOSKELETAL: No obvious deformities. Extremities without clubbing, cyanosis , or edema. TTP at left posterior lateral upper thorax. NEURO: Awake and alert. No obvious cranial nerve deficits. Moving all extremities spontaneously. Normal speech. SKIN: rash on forehead improving. Results Labs on day of discharge: Labs from last 24 hours 05/23/18 05:27 Sodium 141 Potassium 3.6 Chloride 103 Carbon Dioxide 30.4 Anion Gap 8 BUN 15 Creatinine 1.61 H Estimated GFR 31 L Random Glucose 137 H Calcium 8.3 L Impressions ITS Impressions Abdomen/Pelvis CT 05/15/18 22:14 CONCLUSION: 1. No acute abnormality to explain the patient's left upper quadrant pain. 2. Subcutaneous air involving the anterior abdominal wall without inflammation or fluid collection. This may relate to subcutaneous medication administration. 3. Prior cholecystectomy. 4. Small bilateral pleural effusions with passive atelectasis. Pulmonary Perfusion Imaging 05/15/18 22:14 CONCLUSION: No significant ventilation/perfusion mismatch is identified. Examination is low probability for PE. Chest CTA 05/17/18 00:00 CONCLUSION: 1. No CT evidence for pulmonary artery embolism as questioned. 2. Redemonstration of small bilateral pleural effusions with airspace consolidation at the lung bases. 3. Coronary artery calcifications. Chest X-Ray 05/21/18 00:00 CONCLUSION: No significant change Discharge Plan Discharge Disposition Patient Disposition: Disch W/Home Health Service Discharge Condition Condition: Stable Discharge Order Discharge Orders: Discharge Order (Routine); Ordered 05/24/18 Ordered By: Kalpana Springer Discharge Details Anticipated Discharge Date: 05/24/18 Discharge Comment: DC when arrangements are done and cleared by pulm on 05/24 Physicians Team ED Provider: Brant Mejia Primary Care Provider: UNKNOWN, Attending Provider: Kalpana Springer Other Providers: Eric Alves ; Eric Enrique ; Erick Moreau Rxs /Orders / Referrals /Forms Prescriptions: New nitroglycerin [Nitrostat] 0.4 mg Tablet, Sublingual 0.4 mg Sublingual Q5M PRN (Reason: Angina) Qty: 30 RF: 0 hydrocodone-acetaminophen [[place]] 5-325 mg tablet 1 tab PO Q6-8H PRN (Reason: Acute Pain Exception) Qty: 10 RF: 0 levofloxacin [Levaquin] 500 mg tablet 500 mg PO DAILY 3 Days Qty: 3 RF: 0 Continue metformin 500 mg Tablet 500 mg PO BID RF: 0 atorvastatin 10 mg Tablet 10 mg PO DAILY RF: 0 cyanocobalamin (vitamin B-12) [Vitamin B-12] 1,000 mcg Tablet 1,000 mcg PO DAILY RF: 0 melatonin 3 mg Tablet 3 mg PO HS PRN (Reason: Insomnia) RF: 0 paroxetine HCl 30 mg Tablet 30 mg PO DAILY RF: 0 ferrous sulfate 325 mg (65 mg iron) Tablet 325 mg PO DAILY RF: 0 gabapentin 300 mg Capsule 300 mg PO TID RF: 0 glipizide 5 mg Tablet 5 mg PO DAILY RF: 0 pantoprazole [address] For Susp In Packet 40 mg PO DAILY RF: 0 alpha lipoic acid 600 mg Capsule 600 mg PO DAILY RF: 0 chromium aa zef-tayhnintf-emcd 200-5-25 mcg-mg-mg Tablet 200 mg PO DAILY RF: 0 Lacto.acidophilus-Bif.animalis [Daily Probiotic] 2.5 billion cell Capsule 2 tab DAILY RF: 0 cyclobenzaprine 10 mg Tablet 10 mg PO TID PRN (Reason: spasm) RF: 0 tramadol 50 mg Tablet 50 mg PO Q6H PRN (Reason: Acute Pain) RF: 0 Ambulatory Orders / Order Sets / DME: Oxygen Tank (2-5 liter) (Routine) Location: Determined by Patient Ordered By: Kalpana Springer Referrals: Erick Moreau MD [Physician] - See Instructions ( Please call the physician' s office to book the appointment to be seen within [3 weeks].) Eric Enrique MD [Physician] - See Instructions ( Your appointment has been scheduled for [06/11] at [11:00AM] If you cannot make this appointment, please call the office to reschedule ) Eric Alves MD [Physician] - See Instructions ( Your appointment has been scheduled for [06/06] at [4:20PM] If you cannot make this appointment, please call the office to reschedule ) [facility], [Agency] - See Instructions UNKNOWN, [Primary Care Provider] - See Instructions ( Please call the physician's office to book the appointment to be seen within [2-3 days]. Follow up with your PCP ) Discharge Instructions Patient Printed Instructions: Acute Kidney Injury (DC), Urinary Tract Infection in Women (DC), Using Oxygen at Home (DC), Pleural Effusion (DC), Pleural Effusion (GEN) Additional Instructions: Your Health Problems: Goals to Promote Your Health: * To prevent worsening of your condition * To maintain your health at the optimal level Directions to Meet Your Goals: * Take your medications as prescribed * Follow your dietary instruction * Follow activity as directed * Keep your appointments as scheduled * Take your immunizations and boosters as scheduled * If your symptoms worsen call your PCP * If no PCP go to Urgent Care or Emergency Room Smoking is dangerous to your health. Avoid second hand smoke. You may reach the 24-hour crisis hotline for domestic abuse at . Post Discharge Care Plan Care Plan Goals: Your Health Problems: Goals to Promote Your Health: * To prevent worsening of your condition * To maintain your health at the optimal level Directions to Meet Your Goals: * Take your medications as prescribed * Follow your dietary instruction * Follow activity as directed * Keep your appointments as scheduled * Take your immunizations and boosters as scheduled * If your symptoms worsen call your PCP * If no PCP go to Urgent Care or Emergency Room Smoking is dangerous to your health. Avoid second hand smoke. You may reach the 24-hour crisis hotline for domestic abuse at . Status ED Status: Left Department
[2018-05-24] MEDS: Insulin NovoLOG Aspart Correctional Sugar Inj SQ SCH ×3 (08:24→18:19)
[2018-05-24] MEDS: Gabapentin 300 MG Capsule PO SCH (08:26)
[2018-05-24] MEDS: Sodium Chloride 0.9% 2 ML Flush BID IV.FLUSH SCH (08:26)
[2018-05-24] MEDS: Senna/Docusate Sodium 8.6/50 MG Tablet PO SCH (08:26)
[2018-05-24] MEDS: Ferrous Sulfate 325 MG Tablet PO SCH (08:27)
[2018-05-24] MEDS: Lactobacillus Acidophilus/L. Spores Tablet PO SCH (08:27)
--- NOTE | 2018-05-24 09:49 | P.PNPL ---
Subjective Interval history: Patient is on 2L oxygen. Afebrile, denies any worsening SOB from baseline or CP. Physical Exam Vital signs: Vital Signs 05/23/18 10:17 05/23/18 11:00 05/23/18 12:28 Temperature Pulse Rate 77 97 H Respiratory Rate 18 Blood Pressure Pulse Oximetry Pulse Oximetry [Resting on Room Air] 87 L Pulse Oximetry [Resting with Oxygen] 95 05/23/18 12:33 05/23/18 15:00 05/23/18 15:27 Temperature 97.9 F Pulse Rate 71 90 74 Respiratory Rate 18 18 Blood Pressure 105/73 Pulse Oximetry 88 L Pulse Oximetry [Resting on Room Air] Pulse Oximetry [Resting with Oxygen] 05/23/18 16:41 05/23/18 19:00 05/23/18 19:53 Temperature 98.2 F Pulse Rate 76 77 74 Respiratory Rate 18 14 Blood Pressure 111/60 Pulse Oximetry 92 L 94 L Pulse Oximetry [Resting on Room Air] Pulse Oximetry [Resting with Oxygen] 05/23/18 20:00 05/23/18 23:00 05/23/18 23:50 Temperature 97.9 F Pulse Rate 80 78 73 Respiratory Rate 16 18 Blood Pressure 90/53 L Pulse Oximetry 93 L Pulse Oximetry [Resting on Room Air] Pulse Oximetry [Resting with Oxygen] 05/24/18 00:00 05/24/18 03:00 05/24/18 03:10 Temperature Pulse Rate 82 75 72 Respiratory Rate 16 18 Blood Pressure 100/62 Pulse Oximetry 92 L Pulse Oximetry [Resting on Room Air] Pulse Oximetry [Resting with Oxygen] 05/24/18 04:00 05/24/18 07:25 05/24/18 08:00 Temperature 98.2 F 98.1 F Pulse Rate 79 84 Respiratory Rate 16 17 Blood Pressure 105/56 L 107/67 Pulse Oximetry 92 L 96 95 Pulse Oximetry [Resting on Room Air] Pulse Oximetry [Resting with Oxygen] Intake & Output 05/23/18 05/24/18 05/24/18 18:59 06:59 18:59 Intake Total 480 / 480 240 / 240 Output Total 300 / 300 600 / 600 Balance 180 / 180 -360 / -360 Weight 61 kg Intake: Oral 480 / 480 240 / 240 Output: Urine 300 / 300 600 / 600 Other: # Voids 3 Date of Last Bowel Movement 05/20/18 05/23/18 - Constitutional no acute distress - Routine HEENT Exam Head: Present: normocephalic, atraumatic Eye: Present: EOMI, PERRL, normal accommodation, conjunctivae pink ENT: Present: mucous membranes moist - Routine Neck Exam Present: supple, full ROM, trachea midline - Routine Respiratory Exam Present: CTA bilaterally - Routine Cardiovascular Exam Present: RRR, S1, S2 - Routine Abdominal Exam Present: soft, normoactive bowel sounds - Routine Extremities Exam Present: full ROM, pulses intact - Routine Neurological Exam Present: alert, oriented X3, CN II-XII intact Assessment and Plan - Plan 1. Respiratory insufficiency. 2. COPD. 3. History of tobacco abuse. 4. Hypertension. 5. S/p laparoscopic repair of hiatal hernia with partial fundoplication. 6. History of gastroesophageal reflux disease. 7. Diabetes mellitus. 8. Peptic ulcer disease. 9. UTI 10. CORNELL Plan Continue with oxygen and maintain sats> 92%. Bronchodilators-DuoNeb, IS BIPAP PRN for resp distress CXR 05/21: bibasilar pleural-parenchymal opacities are grossly unchanged CTA chest on 05/17 no PE, small bilateral effusions with atelectasis. V/Q scan on 05/15 showed low probability for pulmonary embolism. Monitor BP keep MAP>65mmHg. Lactic acid 1.7 Abx- Change Levaquin to PO and finish 7 day course.. Strep pneumonia and legionella urinary antigen negative. sputum cx- normal resp moshe Assess for home oxygen prior to discharge. Increase activity Continue treatment plan
[2018-05-24] MEDS ORDERED: levoFLOXacin 750 MG Tablet PO ONE (14:00)
--- NOTE | 2018-05-24 14:32 | P.PNIM ---
Subjective Interval history: Sleepy, reassessed later . Spoke with the CM who is working on home health arrangements. Patient needs O2 as fail walk test . She feels much better. No n/v/d/c. Deneis chest pain or sob. No fever or chills. Also has support, spoke with friend who will pick her up and is very supportive also her daughter is very supportive. Physical Exam Vital signs: Vital Signs 05/23/18 15:00 05/23/18 15:27 05/23/18 16:41 Temperature 98.2 F Pulse Rate 90 74 76 Respiratory Rate 18 18 Blood Pressure 111/60 Pulse Oximetry 92 L 05/23/18 19:00 05/23/18 19:53 05/23/18 20:00 Temperature 97.9 F Pulse Rate 77 74 80 Respiratory Rate 14 16 Blood Pressure 90/53 L Pulse Oximetry 94 L 93 L 05/23/18 23:00 05/23/18 23:50 05/24/18 00:00 Temperature Pulse Rate 78 73 82 Respiratory Rate 18 16 Blood Pressure 100/62 Pulse Oximetry 92 L 05/24/18 03:00 05/24/18 03:10 05/24/18 04:00 Temperature 98.2 F Pulse Rate 75 72 79 Respiratory Rate 18 16 Blood Pressure 105/56 L Pulse Oximetry 92 L 05/24/18 07:00 05/24/18 07:25 05/24/18 08:00 Temperature 98.1 F Pulse Rate 68 84 Respiratory Rate 17 Blood Pressure 107/67 Pulse Oximetry 96 95 05/24/18 11:00 05/24/18 11:29 05/24/18 12:08 Temperature 98.0 F Pulse Rate 68 91 H 68 Respiratory Rate 20 18 Blood Pressure 92/55 L Pulse Oximetry 92 L Intake & Output 05/23/18 05/24/18 05/24/18 18:59 06:59 18:59 Intake Total 480 / 480 240 / 240 Output Total 300 / 300 600 / 600 Balance 180 / 180 -360 / -360 Weight 61 kg Intake: IV Levaquin 750 mg Premix Inj 150 25 / 25 ML @ 100 mls/hr IV.SIG Q48H MEREDITH Rx#:[id number] Oral 480 / 480 240 / 240 Output: Urine 300 / 300 600 / 600 Other: # Voids 3 Date of Last Bowel Movement 05/20/18 05/23/18 Narrative: GENERAL: Pleasant 77 yo female, well-nourished, well-developed, appears tired. CARDIOVASCULAR: Regular rate and rhythm. No murmur appreciated. RESPIRATORY: No accessory muscle use. Breath sounds diminished bibasilar. No wheezing. Tenderness to palpation over right lower chest . GASTROINTESTINAL: Abdomen soft, ND, + BS x4Q. Mild diffuse tenderness to palpation. MUSCULOSKELETAL: No obvious deformities. Extremities without clubbing, cyanosis , or edema. TTP at left posterior lateral upper thorax. NEURO: Awake and alert. No obvious cranial nerve deficits. Moving all extremities spontaneously. Normal speech. SKIN: rash on forehead improving. Results Labs CBC & Chem 7: 05/22/18 11:29 05/23/18 05:27 Labs: Microbiology 05/21/18 08:00 Sputum - Expectorated Sputum Gram Stain - Final 05/21/18 08:00 Sputum - Expectorated Sputum Sputum Culture - Final Heavy growth normal respiratory moshe Assessment and Plan (1) Congestive heart failure as early postoperative complication: Status: Acute (2) Hiatal hernia with gastroesophageal reflux: Code(s): K21.9 - Gastro-esophageal reflux disease without esophagitis; K44.9 - Diaphragmatic hernia without obstruction or gangrene Status: Acute (3) Bilateral pleural effusion: Code(s): J90 - Pleural effusion, not elsewhere classified Status: Acute (4) Acute costochondritis: Code(s): M94.0 - Chondrocostal junction syndrome [[place]] Status: Acute (5) Urinary tract infection: Code(s): N39.0 - Urinary tract infection, site not specified Status: Acute Plan 77-year-old female with a past medical history significant for diabetes mellitus , COPD, hyperlipidemia and GERD presents to the emergency department for the evaluation of left-sided abdominal/flank pain. Healthcare Associated Pneumonia with Pleural Effusions: acute. +SOB. Acute on chronic respiratory failure now requiting 4L O2 by [place] -CXR 05/15 concerning for pulm edema - Received IV Lasix 40mg x1 with good response. Continue lasix 40mg daily x3days, however kidney function is worsening will decreased lasix to 20 mg daily. Discontinue Lasix as noted hypotensive -Chest CTA negative for PE, shows small bilateral pleural effusions with airspace consolidation at the lung bases -Started on antibiotics with IV Levaquin (allergies to amoxicillin and cephalosporins) -O2 as needed -Incentive spirometry, Acapella -Repeat CXR 05/21/18 bibasilar pleural parenchymal opacities are grossly unchanged -Consult pulm for eval , appreciate recs Hypotension. Discontinue Lasix. Received IV fluids 250 cc bolus 05/22 , better blood pressure on repeat. Monitor BP UTI: acute, UA with leuks and WBCs -Urine culture with E.coli - resistance to fluoroquinolones -Received bactrim 1 tab po bid x3days Abdominal/flank pain: possibly secondary to recent surgery vs pneumonia vs pleuritic vs musculoskeletal vs UTI -CT of the abdomen/pelvis negative for acute abnormality -Status post hiatal hernia repair on Sunday05/10/18 -Dr. 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 Enrique, unlikely ACS -Echocardiogram with EF 55-60% Diabetes mellitus: chronic -Monitor Accu-Cheks and cover with sliding scale insulin Hyperlipidemia: chronic -Continue statin GERD: chronic -Continue protonix CORNELL: Creatinine 1.65, baseline unknown. Possibly secondary to recent decreased oral intake -Given IV fluid hydration, however patient developed SOB with mild pulm edema , s/p IV Lasix 40mg x1 -Renal function improving initially, now worsening,. lasix decreased, no imprpvement in kidney fxn, will DC lasix and monitor renal function seborrheic dermatitis on forehead, add antifungal cream DVT Prophylaxis: teds/SCDs; Holding pharmacologic anticoagulation until cleared by general surgery DC when imprpves Consult pulm as patient is not getting better, repeat imaging, patient is requiring 3L by [place] Discussed with the patient, nurse DC home with home health, arrangements done per CM Failed Oxygen walking test patient will need oxygen at home. Ordered O2 at home Discussed with the patient, nurse, case management Progress Note: Quality VTE Deep Vein Thrombosis/Pulmonary Embolism Present on Admission: No _ (1) Urinary tract infection Qualifiers: Encounter type: Hematuria presence: Indwelling urinary catheter type: Urinary tract infection type:
[2018-05-26] MEDS ORDERED: levoFLOXacin 750 MG Tablet PO SCH (09:00)
== END 2018-05-24 20:30 | disposition home health service (06) | DRG 314 ==
LOC: NEDA 21:09 → NEPE 21:09 → NEPFCDU 05-16 03:08 → HCIN 05-17 18:14
PROVIDERS: ADMIT Hospitalist; ATTEND Hospitalist
DX: I97.131 Postprocedural heart failure following other surgery; I50.9 Heart failure, unspecified; N39.0 Urinary tract infection, site not specified; K21.9 Gastro-esophageal reflux disease without esophagitis; R26.81 Unsteadiness on feet; N17.9 Acute kidney failure, unspecified; B96.20 Unspecified Escherichia coli [E. coli] as the cause of diseases classified elsewhere; Z91.040 Latex allergy status; J44.0 Chronic obstructive pulmonary disease with (acute) lower respiratory infection; Z88.5 Allergy status to narcotic agent; I25.10 Atherosclerotic heart disease of native coronary artery without angina pectoris; I95.9 Hypotension, unspecified; K27.9 Peptic ulcer, site unspecified, unspecified as acute or chronic, without hemorrhage or perforation; Z16.23 Resistance to quinolones and fluoroquinolones; Z87.891 Personal history of nicotine dependence; J98.11 Atelectasis; Z83.3 Family history of diabetes mellitus; E11.22 Type 2 diabetes mellitus with diabetic chronic kidney disease; Z88.1 Allergy status to other antibiotic agents; Y95 Nosocomial condition; I13.0 Hypertensive heart and chronic kidney disease with heart failure and stage 1 through stage 4 chronic kidney disease, or unspecified chronic kidney disease; Z88.0 Allergy status to penicillin; Z79.84 Long term (current) use of oral hypoglycemic drugs; M94.0 Chondrocostal junction syndrome [Tietze]; E78.5 Hyperlipidemia, unspecified; N18.9 Chronic kidney disease, unspecified; J18.9 Pneumonia, unspecified organism; L21.8 Other seborrheic dermatitis; Z98.61 Coronary angioplasty status; J96.21 Acute and chronic respiratory failure with hypoxia
CPT/HCPCS: 71010; 71045; 71275; 74176; 76937; 78582; 80048; 80053; 80061; 81001; 82550; 82552; 82948; 82962; 83520; 83605; 83690; 83735; 83880; 84484; 85025; 85379; 87070; 87077; 87086; 87186; 87205; 87449; 90761; 90774; 90784; 93005; 93306; 94150; 94618; 94620; 94640; 94664; 94665; 94668; 96361; 96374; 97110; 97116; 97162; 97530; 99291; A9519; A9540; A9567; C1094; C8952; J1170; J1815; J1940; J1956; J2270; J2405; J7030; J7040; Q9967